=== PATIENT | male | born 1985 | race Caucasian/White ===

== ENCOUNTER 2016-11-10 19:58 | Emergency (ER) | payer MEDICAID ==
--- NOTE | 2016-11-10 20:14 | UCPHY ---
H & P Patient Type: New Chief Complaint Nursing Narrative: injured r forearm playing football wednesday HPI/ROS: HPI CHIEF COMPLAINT: Right elbow pain, right forearm pain HISTORY OF PRESENT ILLNESS: This patient very pleasant 31-year-old male, significant past medical history for hypertension, presents to the urgent care with right forearm pain and right elbow pain status post injury while playing full tackle football on Wednesday. Patient states he remembers initial injury was strike to the medial aspect of his forearm over his radius, since then he has had some mild pain however today while using heavy machinery with his arm he develops severe pain medial aspect of his radius radiating down into his right thumb sometimes sharp stabbing pains goes the tip of his right thumb and other times he is tingling. He has no radiopharmacist weakness. He does have severe pain mid forearm radial side.. Past Medical History:Hypertension Past Surgical History: Nasal surgery, tonsillectomy Social History: Denies daily use of drugs alcohol tobacco products Family History: Noncontributory ROS REVIEW OF SYSTEMS: A comprehensive 10 point review of systems is otherwise negative aside from elements mentioned in the history of present illness. Exam Constitutional triage nursing summary reviewed, vital signs reviewed, awake/ alert. Eyes normal conjunctivae and sclera, EOMI, PERRLA. HENT normal inspection, atraumatic, moist mucus membranes, no epistaxis, neck supple/ no meningismus, no raccoon eyes. Respiratory clear to auscultation bilaterally, normal breath sounds, no respiratory distress, no wheezing. Cardiovascular rate normal, regular rhythm, no murmur, no edema, distal pulses normal. Gastrointestinal soft, non-tender, no rebound, no guarding, normal bowel sounds, no distension, no pulsatile mass. Genitourinary no CVA tenderness. Musculoskeletal right forarm: Soft compartments, Neurovascularly intact distally good cap refill, good sensation, good radiopharmacist strength, good pulse, tender palpation over the medial aspect of the form specifically radial side tender palpation over the posterior elbow, full range of motion, however has exquisite pain with supination pronation of the wrist. no midline vertebral tenderness, full range of motion, no calf swelling, no tenderness of extremities , no meningismus, good pulses, neurovascularly intact. Skin pink, warm, & dry, no rash, skin atraumatic. Neurologic awake, alert and oriented x 3, AAOx3, moves all 4 extremities equally, motor intact, sensory intact, CN II-XII intact, normal cerebellar, normal vision, normal speech. Psychiatric normal mood/affect. Heme/Lymph/Immune no lymphadenopathy. Differential Diagnosis: Includes but is not limited to in a particular order, soft tissue injury, nerve injury, bony abnormality, forearm fracture, compartment syndrome Medical Decision Making: patient declined pain medicine here plan for patient is to have a x-ray of the forearm and elbow to rule out bony abnormality. Most likely patient will need to be placed in a posterior long-arm splint anti- inflammatory pain medicine [place] for severe pain control and orthopedic follow- up. Re-evaluation: ED x-ray right forearm: no evidence of acute fracture. Image interpreted myself. ED x-ray right elbow: No evidence of acute fracture. Image interpreted myself. 2100: this patient be splinted in a posterior long-arm splint and sling for comfort ibuprofen for anti-inflammatory pain control [place] for pain control patient will need to follow up with Orthopedics outpatient for splint takedown in repeat imaging. At this time is neurovascular intact good cap refill, good pulse, compartments are soft. No evidence of compartment syndrome. X-rays reviewed show no acute fracture. It is possibly is bony contusion, soft tissue injury with inflammation causing ongoing forearm pain and nerve radicular pain at times. Understands to ice his arm, stay in his splint and sling for comfort. Follow up with Orthopedics. He understands. 2104: patient is paced in a posterior long-arm splint. Appropriate placement neurovascular intact. Source: Patient - Personal History Current Tetanus/Diphtheria Vaccine: Yes - Medical/Surgical History Hx Asthma: No Hx Chronic Respiratory Disease: No Hx Diabetes: No Hx Cardiac Disease: No Hx Renal Disease: No Hx Cirrhosis: No Hx Alcoholism: No Hx HIV/AIDS: No Hx Splenectomy or Spleen Trauma: No Other PMH: appy/hernia/tonsillectomy/l knee surg/nasal fx - Family History Significant Family History: No pertinent family hx - Social History Smoking Status: Current every day smoker Constitutional: Initial Vital Signs Temperature (C) 36.7 C 11/10/16 20:08 Heart Rate 90 11/10/16 20:08 Respiratory Rate 16 11/10/16 20:08 Blood Pressure 188/103 H 11/10/16 20:08 O2 Sat (%) 97 11/10/16 20:08 O2 Delivery Mode Room Air Allergies/Adverse Reactions: Sulfa (Sulfonamide Antibiotics) Allergy (Verified 11/10/16 20:07) Home Medications: Medication Instructions Recorded Hydrocodone/APAP 5/325 [[place] 1 - 2 tab PO Q4H PRN #20 tab 11/10/16 5/325] Ibuprofen [Motrin (*)] 800 mg PO Q6-8PRN #10 tab 11/10/16 Metoprolol Succinate 11/10/16 Norvasc 11/10/16 Omeprazole 11/10/16 Departure - Departure Disposition: Home, Routine, Self-Care Clinical Impression: Forearm contusion Qualifiers: Encounter type: initial encounter Laterality: right Qualified Code(s): S50.11XA - Contusion of right forearm, initial encounter Condition: Good Instructions: Contusion in Adults (ED), Arm Pain (ED) Additional Instructions: 1. Please follow up with Orthopedics 2. please ice your arm. Please stay in her splint do not get wet. 3. Take ibuprofen for anti-inflammatory pain control [place] for having severe pain. Referrals: NONE *PRIMARY CARE P,. [Primary Care Provider] - As per Instructions Fredy Plasencia MD [Medical Doctor] - As per Instructions Prescriptions: Hydrocodone/APAP 5/325 [[place] 5/325] 1 - 2 tab PO Q4H PRN #20 tab PRN Reason: Pain, Moderate Ibuprofen [Motrin (*)] 800 mg PO Q6-8PRN #10 tab - PQRS PQRS Measurement: n/a
[2016-11-10 20:22] VITALS: BP 188/103; PULSE 90; RESP 16; TEMP 98.1; O2SAT 97
== END 2016-11-10 21:22 | disposition home or self-care (01) ==
LOC: CED 19:58
PROC: 2W3AX1Z Immobilization of Right Upper Arm using Splint (ICD-10-PCS; principal; 2016-11-10)
DX: S50.11XA Contusion of right forearm, initial encounter (principal); Y93.61 Activity, american tackle football; W50.0XXA Accidental hit or strike by another person, initial encounter; Y99.8 Other external cause status; I10 Essential (primary) hypertension; F17.200 Nicotine dependence, unspecified, uncomplicated
CPT/HCPCS: 73080-PO; 73090-PO; 99204-PO; G0463-PO

== ENCOUNTER 2016-12-25 13:31 | Emergency (ER) | payer MEDICAID ==
[2016-12-25 13:40] VITALS: RESP 14; TEMP 98.1; O2SAT 97
[2016-12-25] MEDS ORDERED: NS 1,000 ML IV ONE (13:51)
[2016-12-25] MEDS ORDERED: HYDROmorphONE/DILAUDID 1 MG/ML SYR IVP ONE ×2 (13:51→14:41)
[2016-12-25] MEDS ORDERED: ONDANSETRON 4 MG/2 ML VIAL IVP ONE (13:51)
--- NOTE | 2016-12-25 13:51 | UCPHY ---
H & P Patient Type: Established Chief Complaint Nursing Narrative: right testicular pain and groin pain . Since Wednesday night after foot ball game. today made worse while carrying heavy 200lb object today . No urinary issues. Time Seen by Provider: 12/25/16 13:44 HPI/ROS: CHIEF COMPLAINT: Right testicular pain HISTORY OF PRESENT ILLNESS: Patient is a 31-year-old man who comes to the Urgent Care complaining of right-sided testicular pain. He noticed the pain on Wednesday while playing football. He thought that he strained his groin muscle. It Was slightly painful all week but became significantly more painful about 9: 00 a.m. this morning when he was lifting glass at work. He had significant pain that he felt like he was shocked. he has had an inguinal hernia repair on the right side several years ago. No palpable lumps or masses. He also has had his appendix removed remotely. He has had a poor appetite all week and did vomit on Wednesday. REVIEW OF SYSTEMS: Constitutional: denies: chills, fever, recent illness, recent injury EENTM: denies: blurred vision, double vision, nose congestion Respiratory: denies: cough, shortness of breath Cardiac: denies: chest pain, irregular heart rate, lightheadedness, palpitations Gastrointestinal/Abdominal: denies: abdominal pain, diarrhea, nausea, vomiting, blood streaked stools Genitourinary: denies: dysuria, frequency, hematuria, pain Musculoskeletal: denies: joint pain, muscle pain Skin: denies: lesions, rash, jaundice, bruising Neurological: denies: headache, numbness, paresthesia, tingling, dizziness, weakness Hematologic/Lymphatic: denies: blood clots, easy bleeding, easy bruising Immunologic/allergic: denies: HIV/AIDS, transplant EXAM: GENERAL: Well-appearing, well-nourished and in no acute distress. HEAD: Atraumatic, normocephalic. EYES: Pupils equal round and reactive to light, extraocular movements intact, sclera anicteric, conjunctiva are normal. ENT: TMs normal, nares patent, oropharynx clear without exudates. Moist mucous membranes. NECK: Normal range of motion, supple without lymphadenopathy or JVD. LUNGS: Breath sounds clear to auscultation bilaterally and equal. No wheezes rales or rhonchi. HEART: Regular rate and rhythm without murmurs, rubs or gallops. ABDOMEN: Soft, nontender, normoactive bowel sounds. No guarding, no rebound. No masses appreciated. : Patient has a high-riding right testicle, negative cremasteric reflex, horizontal lie, BACK: No CVA tenderness, no spinal tenderness, step-offs or deformities EXTREMITIES: Normal range of motion, no pitting or edema. No clubbing or cyanosis. NEUROLOGICAL: Cranial nerves II through XII grossly intact. Normal speech, normal gait. 5/5 strength, normal movement in all extremities, normal sensation PSYCH: Normal mood, normal affect. SKIN: Warm, dry, normal turgor, no visible rashes or lesions. Source: Patient Exam Limitations: No limitations - Personal History Current Tetanus Diphtheria and Acellular Pertussis (TDAP): Yes - Medical/Surgical History Hx Asthma: No Hx Chronic Respiratory Disease: No Hx Diabetes: No Hx Cardiac Disease: No Hx Renal Disease: No Hx Cirrhosis: No Hx Alcoholism: No Hx HIV/AIDS: No Hx Splenectomy or Spleen Trauma: No Other PMH: appy/hernia/tonsillectomy/l knee surg/nasal fx - Family History Significant Family History: No pertinent family hx - Social History Smoking Status: Current some day smoker Alcohol Use: Sober Drug Use: None Constitutional: Initial Vital Signs Temperature (C) 36.7 C 12/25/16 13:34 Heart Rate 100 12/25/16 13:34 Respiratory Rate 14 12/25/16 13:34 Blood Pressure 179/118 H 12/25/16 13:34 O2 Sat (%) 97 12/25/16 13:34 O2 Delivery Mode Room Air Allergies/Adverse Reactions: Sulfa (Sulfonamide Antibiotics) Allergy (Verified 12/25/16 13:40) Home Medications: Medication Instructions Recorded Metoprolol Succinate 11/10/16 Norvasc 11/10/16 Omeprazole 11/10/16 Doxycycline Hyclate [Vibramycin] 100 mg PO BID #30 cap 12/25/16 Hydrocodone/APAP 5/325 [[place] 1 - 2 tab PO Q4H PRN #10 tab 12/25/16 5/325 (RX)] Medical Decision Making - Diagnostics Imaging: Images reviewed by me personally ED Course/Re-evaluation: 1:52 p.m. I did attempt to de-torse the right testicle 180 degrees. Ultrasound has been ordered and urology has been paged . 2:50 p.m. I spoke with Dr. Ly at 2:45 p.m. He recommends treating the patient with anti-inflammatories as well as antibiotics. He recommends obtaining a urine for cultures. He also recommends staying off of his feet and scrotal support and they will follow up with him early next week. We discussed this with the patient and he understands and agrees. He is in a monogamous relationship and is confident that this is not represent an STD. We discussed indications for returning. Differential Diagnosis: Partial list of the Differential diagnosis considered include but were not limited to; testicular torsion, varicocele, epididymitis and although unlikely based on the history and physical exam, I also considered trauma, inguinal hernia, appendicitis, kidney stone. I discussed these differential diagnoses and the plan with the patient as well as the usual and expected course. The patient understands that the diagnosis is provisional and that in medicine we are not always correct and that further workup is often warranted. Usual and customary warnings were given. All of the patient's questions were answered. The patient was instructed to return to the emergency department should the symptoms at all worsen or return, otherwise to followup with the physician as we discussed. - Data Points Laboratory Results: Laboratory Results 12/25/16 14:20 12/25/16 14:20 Microbiology Results: MICROBIOLOGY 12/25/16 15:00 Urine,Clean Catch Urine Culture - Preliminary Medications Given: Discontinued Medications Hydrocodone Bitart/Acetaminophen ([place] 5/325mg Prepack#6) 1 btl TAKEHOME EDNOW ONE Stop: 12/25/16 15:39 Last Admin: 12/25/16 15:47 Dose: 1 btl Ceftriaxone Sodium (Rocephin 250mg Vial) 250 mg IM EDNOW ONE PRN Reason: Protocol Stop: 12/25/16 14:46 Last Admin: 12/25/16 15:15 Dose: 250 mg Doxycycline Hyclate (Doxycycline Hyclate) 100 mg PO EDNOW ONE PRN Reason: Protocol Stop: 12/25/16 14:46 Last Admin: 12/25/16 15:21 Dose: 100 mg Hydromorphone HCl (Dilaudid) 1 mg IVP EDNOW ONE Stop: 12/25/16 13:52 Last Admin: 12/25/16 14:20 Dose: 1 mg Hydromorphone HCl (Dilaudid) 1 mg IVP EDNOW ONE Stop: 12/25/16 14:42 Last Admin: 12/25/16 14:50 Dose: 1 mg Sodium Chloride (Ns) 1,000 mls @ 0 mls/hr IV ONCE ONE PRN Reason: Wide Open Stop: 12/25/16 13:52 Last Admin: 12/25/16 14:30 Dose: 1,000 mls Ketorolac Tromethamine (Toradol) 30 mg IVP EDNOW ONE Stop: 12/25/16 14:47 Last Admin: 12/25/16 14:59 Dose: 30 mg Ondansetron HCl (Zofran) 4 mg IVP EDNOW ONE Stop: 12/25/16 13:52 Last Admin: 12/25/16 14:15 Dose: 4 mg Departure - Departure Disposition: Home, Routine, Self-Care Clinical Impression: Right varicocele, Testicle pain Condition: Fair Instructions: Varicocele (ED), Testicle Pain (ED) Additional Instructions: Use scrotal support and anti-inflammatories as discussed. Referrals: Mona Ly MD [Medical Doctor] - 2-3 days without fail Prescriptions: Doxycycline Hyclate [Vibramycin] 100 mg PO BID #30 cap Hydrocodone/APAP 5/325 [[place] 5/325 (RX)] 1 - 2 tab PO Q4H PRN #10 tab PRN Reason: Pain, Moderate - PQRS PQRS Measurement: Not applicable
[2016-12-25 14:31] LABS: % IMMATURE GRANULYOCYTES 0.3 % (0.0-1.1); ABSOLUTE IMMATURE GRANULOCYTES 0.02 10^3/uL (0.00-0.10); ADD DIFF? NO; ADD MORPH? NO; ADD SCAN? NO; ATYPICAL LYMPHOCYTE FLAG 0 (0-99); FRAGMENT RBC FLAG 0 (0-99); HEMATOCRIT 41.9 % (40.0-51.0); HEMOGLOBIN 14.3 g/dL (13.7-17.5); LEFT SHIFT FLG 0 (0-99); LIPEMIA HEMOLYSIS FLAG 90 (0-99); MEAN CELL HEMOGLOBIN 31.2 pg (27.9-34.1); MEAN CELL HEMOGLOBIN CONCENTR. 34.1 g/dL (32.4-36.7); MEAN CELL VOLUME 91.5 fL (81.5-99.8); MEAN PLATELET VOLUME 12.4 fL (8.7-11.7); PLATELET CLUMPS FLAG 0 (0-99); PLATELET COUNT 162 10^3/uL (150-400); RED BLOOD CELL COUNT 4.58 10^6/uL (4.40-6.38); RED CELL DISTRIBUTION WIDTH 12.2 % (11.5-15.2)
[2016-12-25] MEDS ORDERED: DOXYCYCLINE HYCLATE 100 MG CAP/TAB PO ONE (14:45)
[2016-12-25] MEDS ORDERED: KETOROLAC 30 MG/1 ML SDV IVP ONE (14:46)
[2016-12-25] MEDS ORDERED: cefTRIAXone 0.25 GM in NS 100 ML IV ONE (14:46)
[2016-12-25] MEDS: cefTRIAXone 250 MG VIAL IM ONE ×2 (14:46→15:15)
[2016-12-25 14:56] LABS: ANION GAP 14 mEq/L (8-16); CALCIUM 9.1 mg/dL (8.5-10.4); CARBON DIOXIDE 24 mEq/l (22-31); CHLORIDE 101 mEq/L (97-110); CREATININE 0.9 mg/dL (0.7-1.3); GLOMERULAR FILTRATION RATE > 60; GLUCOSE 85 mg/dL (70-100); POTASSIUM 4.5 mEq/L (3.5-5.2); SODIUM 139 mEq/L (134-144)
[2016-12-25 15:09] LABS: COLOR YELLOW; LEUKOCYTE ESTERASE,URINE NEGATIVE (NEGATIVE); NITRITE,URINE NEGATIVE (NEGATIVE); PH,URINE 6.5 (5.0-7.5)
[2016-12-25] MEDS ORDERED: HYDROCOD/APAP 5/325 PREPACK#6 BTL TAKEHOME ONE (15:38)
[2016-12-25 16:28] VITALS: BP 158/96; PULSE 88
[2016-12-28 14:05] LABS: CHLAMYDIA AMPLIFICATION GENPRB NEGATIVE (NEGATIVE)
[2016-12-28] MEDS: cefTRIAXone 250 MG VIAL IM ONE (22:59)
[2016-12-29] MEDS: cefTRIAXone 250 MG VIAL IM ONE (17:12)
== END 2016-12-25 16:01 | disposition home or self-care (01) ==
LOC: CED 13:31
DX: I86.1 Scrotal varices (principal); N50.811 Right testicular pain; F17.200 Nicotine dependence, unspecified, uncomplicated
CPT/HCPCS: 76870-PO; 80048-PO; 81003-PO; 85025-PO; 96361-PO; 96365-PO; 96372-PO; 96375-PO; 96376-PO; G0463-PO; J0696; J1170; J1885; J2405

== ENCOUNTER 2017-04-29 11:56 | Emergency (ER) | payer MEDICAID, OTHER ==
[2017-04-29 12:10] VITALS: RESP 16; TEMP 98.6
--- NOTE | 2017-04-29 12:18 | EDPHY ---
H & P Time Seen by Provider: 04/29/17 12:06 HPI/ROS: Chief complaint. Nausea and vomiting HPI. 32-year-old male presents with 1 day history of nausea and vomiting. He awoke about midnight with nausea which did proceed vomiting. He also noticed right upper quadrant throbbing type pain. No diarrhea. He can't keep fluids down. He is dizzy on standing. 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 No recent travel or bad food or sick contacts. He has noted decreased urination. No chest discomfort or trouble breathing. He has had similar symptoms previously with right upper quadrant discomfort. Apparently a through 4 years ago there was concern for cholecystitis but he never did have an operation and has not had any right upper quadrant symptoms since that time. He has had his appendix taken out. Because of his nausea vomiting today he was unable to take his antihypertensive medication ROS Constitutional. no fever/chills, no weakness Eyes. no problems with vision ENT. no sore throat, no nasal drainage Cardiovascular. no chest pain Respiratory. no shortness of breath, no cough Abdominal. Right upper quadrant abdominal pain with nausea and vomiting . no problems urinating MS. no calf pain/swelling, no neck/back pain, no joint pain Skin. no rash Lymph. no swollen glands Neuro. Dizzy Past Medical/Surgical History: Appendectomy, hypertension, hernia Social History: Single, daily smoker, no alcohol Smoking Status: Current some day smoker Physical Exam: General Appearance: Alert well-developed male mild distress vital signs show heart rate 104 and initial blood pressure 173/113 Eyes: Pupils equal and round no pallor or injection. ENT, mucous membranes are dry Respiratory: There are no retractions, lungs are clear to auscultation. Cardiovascular: Regular rate and rhythm. Gastrointestinal: Abdomen is soft with really more epigastric discomfort to palpation. No masses. Normal bowel sounds Neurological: Awake and alert, sensory and motor exams grossly normal. Skin: Warm and dry, no rashes. Musculoskeletal: Neck is supple nontender. Extremities symmetrical, full range of motion. Psychiatric: Patient is oriented X 3, there is no agitation. Constitutional: Initial Vital Signs Temperature (C) 37.0 C 04/29/17 12:03 Heart Rate 104 H 04/29/17 12:03 Respiratory Rate 16 04/29/17 12:03 Blood Pressure 173/113 H 04/29/17 12:03 O2 Sat (%) 96 04/29/17 12:03 O2 Delivery Mode Room Air Allergies/Adverse Reactions: Sulfa (Sulfonamide Antibiotics) Allergy (Verified 12/25/16 13:40) tramadol Allergy (Verified 04/29/17 12:02) Home Medications: Medication Instructions Recorded Metoprolol Succinate 11/10/16 Norvasc 11/10/16 Omeprazole 11/10/16 Ondansetron Odt [Zofran Odt] 4 mg PO Q4PRN PRN #4 tab 04/29/17 Medical Decision Making - Diagnostics Imaging Results: Imaging Impressions Abdomen Ultrasound 04/29/17 13:00 Impression: Negative sonogram of the right upper quadrant of the abdomen. I telephoned results to Dr. Krishna Lei at 1340 hours. Ultrasound right upper quadrant reviewed by me and discussed with Dr. Burnham shows no evidence of gallstone or cholecystitis Procedures: IV normal saline with initial target of 2 L. Zofran for nausea ED Course/Re-evaluation: Recheck at 12:50 p.m. and patient still is nauseated. He is given Phenergan IV Recheck at 1:10 p.m. and patient continues to complain of right upper quadrant pain. He is given Toradol IV. Ultrasound is ordered Re-evaluation at 2:00 p.m.. Patient is stable. He is finishing his 1st L of saline. No urination yet. He is taking oral ice chips Re-evaluation 2:35 p.m.. Patient tolerating ice chips and fluids without nausea or vomiting. He feels well to go home . Patient and I discussed imaging and lab results. We discussed treatment plan including criteria for return importance of follow-up and further evaluation. He expresses understanding and agreement Differential Diagnosis: Likely this is dehydration secondary to vomiting. I considered gallbladder disease as well as pancreatitis but these appear to be normal by lab and imaging studies. I considered electrolyte abnormalities as well - Data Points Laboratory Results: Laboratory Results 04/29/17 12:16 04/29/17 12:16 04/29/17 04/29/17 12:16 12:16 WBC 8.11 10^3/uL 10^3/uL (3.80-9.50) RBC 4.60 10^6/uL 10^6/uL (4.40-6.38) Hgb 14.4 g/dL g/dL (13.7-17.5) Hct 41.1 % % (40.0-51.0) MCV 89.3 fL fL (81.5-99.8) MCH 31.3 pg pg (27.9-34.1) MCHC 35.0 g/dL g/dL (32.4-36.7) RDW 12.2 % % (11.5-15.2) Plt Count 227 10^3/uL 10^3/uL (150-400) MPV 11.7 fL fL (8.7-11.7) Neut % (Auto) 58.0 % % (39.3-74.2) Lymph % (Auto) 32.7 % % (15.0-45.0) [place] % (Auto) 6.4 % % (4.5-13.0) Eos % (Auto) 1.8 % % (0.6-7.6) Baso % (Auto) 0.6 % % (0.3-1.7) Nucleat RBC Rel Count 0.0 % % (0.0-0.2) Absolute Neuts (auto) 4.70 10^3/uL 10^3/uL (1.70-6.50) Absolute Lymphs (auto) 2.65 10^3/uL 10^3/uL (1.00-3.00) Absolute Monos (auto) 0.52 10^3/uL 10^3/uL (0.30-0.80) Absolute Eos (auto) 0.15 10^3/uL 10^3/uL (0.03-0.40) Absolute Basos (auto) 0.05 10^3/uL 10^3/uL (0.02-0.10) Absolute Nucleated RBC 0.00 10^3/uL 10^3/uL (0-0.01) Immature Gran % 0.5 % % (0.0-1.1) Immature Gran # 0.04 10^3/uL 10^3/uL (0.00-0.10) Sodium 140 mEq/L mEq/L (134-144) Potassium 4.4 mEq/L mEq/L (3.5-5.2) Chloride 106 mEq/L mEq/L (97-110) Carbon Dioxide 21 mEq/l L mEq/l (22-31) Anion Gap 13 mEq/L mEq/L (8-16) BUN 17 mg/dL mg/dL (7-23) Creatinine 1.0 mg/dL mg/dL (0.7-1.3) Estimated GFR > 60 Glucose 88 mg/dL mg/dL (70-100) Calcium 9.6 mg/dL mg/dL (8.5-10.4) Total Bilirubin 0.9 mg/dL mg/dL (0.1-1.4) Conjugated Bilirubin 0.4 mg/dL mg/dL (0.0-0.5) Unconjugated Bilirubin 0.5 mg/dL mg/dL (0.0-1.1) AST 27 IU/L IU/L (17-59) ALT 51 IU/L IU/L (21-72) Alkaline Phosphatase 112 IU/L IU/L (38-126) Total Protein 7.5 g/dL g/dL (6.3-8.2) Albumin 4.6 g/dL g/dL (3.5-5.0) Lipase 73 IU/L IU/L (23-300) Medications Given: Discontinued Medications Sodium Chloride (Ns) 1,000 mls @ 0 mls/hr IV ONCE ONE PRN Reason: Wide Open Stop: 04/29/17 12:22 Last Admin: 04/29/17 12:22 Dose: 1,000 mls Ketorolac Tromethamine (Toradol) 30 mg IVP EDNOW ONE Stop: 04/29/17 13:08 Last Admin: 04/29/17 13:12 Dose: 30 mg Ondansetron HCl (Zofran) 4 mg IVP EDNOW ONE Stop: 04/29/17 12:22 Last Admin: 04/29/17 12:30 Dose: 4 mg Promethazine HCl (Phenergan) 12.5 mg IVP EDNOW ONE Stop: 04/29/17 12:48 Last Admin: 04/29/17 12:51 Dose: 12.5 mg Departure - Departure Disposition: Home, Routine, Self-Care Clinical Impression: Dehydration Vomiting Qualifiers: Vomiting type: unspecified Vomiting Intractability: non-intractable Nausea presence: with nausea Qualified Code(s): R11.2 - Nausea with vomiting, unspecified Condition: Good Instructions: Acute Nausea and Vomiting (ED) Additional Instructions: Frequent, small sips fluids while nauseated. Gradual diet advancement. Zofran if needed for nausea and vomiting. Return for worsening symptoms. Recheck in 1 day if not improved Referrals: Unknown,Unknown [Primary Care Provider] - As per Instructions Stand Alone Forms: Work Excuse Prescriptions: Ondansetron Odt [Zofran Odt] 4 mg PO Q4PRN PRN #4 tab PRN Reason: Nausea/Vomiting, Use 1st
[2017-04-29] MEDS ORDERED: NS 1,000 ML IV ONE ×2 (12:21→12:38)
[2017-04-29] MEDS ORDERED: ONDANSETRON 4 MG/2 ML VIAL IVP ONE (12:21)
[2017-04-29 12:44] LABS: % IMMATURE GRANULYOCYTES 0.5 % (0.0-1.1); ABSOLUTE IMMATURE GRANULOCYTES 0.04 10^3/uL (0.00-0.10); ADD DIFF? NO; ADD MORPH? NO; ADD SCAN? NO; ATYPICAL LYMPHOCYTE FLAG 0 (0-99); FRAGMENT RBC FLAG 0 (0-99); HEMATOCRIT 41.1 % (40.0-51.0); HEMOGLOBIN 14.4 g/dL (13.7-17.5); LEFT SHIFT FLG 0 (0-99); LIPEMIA HEMOLYSIS FLAG 90 (0-99); MEAN CELL HEMOGLOBIN 31.3 pg (27.9-34.1); MEAN CELL VOLUME 89.3 fL (81.5-99.8); MEAN PLATELET VOLUME 11.7 fL (8.7-11.7); PLATELET CLUMPS FLAG 0 (0-99); PLATELET COUNT 227 10^3/uL (150-400); RED CELL DISTRIBUTION WIDTH 12.2 % (11.5-15.2)
[2017-04-29] MEDS ORDERED: PROMETHAZINE HCL 25 MG/ML INJ IVP ONE (12:47)
[2017-04-29 13:00] LABS: ALANINE AMINOTRANSFERASE 51 IU/L (21-72); ALBUMIN 4.6 g/dL (3.5-5.0); ALKALINE PHOSPHATASE 112 IU/L (38-126); ANION GAP 13 mEq/L (8-16); ASPARTATE AMINOTRANSFERASE 27 IU/L (17-59); BILIRUBIN,TOTAL 0.9 mg/dL (0.1-1.4); BILIRUBIN-CONJUGATED 0.4 mg/dL (0.0-0.5); BILIRUBIN-UNCONJUGATED 0.5 mg/dL (0.0-1.1); CALCIUM 9.6 mg/dL (8.5-10.4); CARBON DIOXIDE 21 mEq/l (22-31); CHLORIDE 106 mEq/L (97-110); GLOMERULAR FILTRATION RATE > 60; GLUCOSE 88 mg/dL (70-100); POTASSIUM 4.4 mEq/L (3.5-5.2); SODIUM 140 mEq/L (134-144); TOTAL PROTEIN 7.5 g/dL (6.3-8.2)
[2017-04-29] MEDS ORDERED: KETOROLAC 30 MG/1 ML SDV IVP ONE (13:07)
[2017-04-29 14:59] VITALS: BP 155/95; PULSE 82; O2SAT 96
== END 2017-04-29 14:45 | disposition home or self-care (01) ==
LOC: CED 11:56
DX: E86.0 Dehydration (principal); I10 Essential (primary) hypertension; F17.200 Nicotine dependence, unspecified, uncomplicated
CPT/HCPCS: 76705-PO; 80048-PO; 80076-PO; 83690-PO; 85025-PO; 96374; J1885; J2405; J2550

== ENCOUNTER 2017-11-08 10:32 | Emergency (ER) | payer OTHER ==
[2017-11-08] MEDS ORDERED: NS 1,000 ML IV ONE (11:06)
[2017-11-08] MEDS: KETOROLAC 30 MG/1 ML SDV IVP ONE ×2 (11:15→13:29)
--- NOTE | 2017-11-08 11:15 | EDPHY ---
H & P Time Seen by Provider: 11/08/17 11:01 HPI/ROS: HPI Fall, left upper abdominal pain. 32-year-old male by private vehicle. This patient reports that he had an abdominal wall, left upper quadrant hernia repair performed on September 29 of this year. He reports that he has been off his pain medications. He reports that he was out to dinner last night. He was escorting his [id number]. She slipped and fell, he then slipped and fell landing on his left side and his [id number] rate landing on top of him. Since this time he has had worsening left-sided upper abdominal pain starting in the area of his surgical incision and radiating around to his left lateral lower ribs and left flank area. He describes the pain as sharp and worse with movement and deep breathing. He did not hit his head. There was no loss of consciousness. No neck pain or other complaints. ROS: Constitutional: No fever, no chills. No weakness. Eyes: No discharge. No changes in vision. ENT: No sore throat. No nasal congestion or rhinorrhea. Respiratory: No cough. No shortness of breath. As above. Cardiac: No chest pain, no palpitations. Gastrointestinal: As above, no vomiting, no diarrhea. Genitourinary: No hematuria. No dysuria or increased frequency with urination. Musculoskeletal: As above.. No neck pain. No myalgias or arthralgias. Skin: No rashes. Neurological: No headache. No focal weakness or altered sensation. Past medical history: As above. Social history: Here by himself. Drinks alcohol socially. Nonsmoker. Physical Exam: General Appearance: Alert, pleasant demeanor, he appears uncomfortable. This patient is responding to questions appropriately and in full sentences. This patient appears well-hydrated and well-nourished. Head: Normocephalic atraumatic. Face: Facial bones are stable on palpation. Eyes: Pupils equal and round and reactive to light, no pallor or injection. No lid erythema or edema. ENT, Mouth: Mucous membranes moist. Dentition is intact. No malocclusion of the jaw. No tongue lacerations or abrasions. Pharynx is clear. The bilateral nasal canals are clear. No septal hematoma. Respiratory: There are no retractions, lungs are clear to auscultation with good air movement bilaterally. Chest wall is stable to AP and lateral palpation. He has tenderness on palpation of the left anterior lower, lateral and posterior rib areas with tenderness on palpation of the left CVA. Cardiovascular: Regular rate and rhythm. No murmur. Gastrointestinal: Abdomen is soft 7 cm left upper quadrant well-healed abdominal surgical incision scar. No associated ecchymosis, edema, erythema or warmth, he is tender on palpation directly over this area, no masses, bowel sounds normal. Neurological: Motor sensory function is intact. Cranial nerves are normal. Cerebellar function intact. Skin: Warm and dry, no rashes. No lacerations, abrasions or contusions. Musculoskeletal: Neck is supple and nontender. The trachea is midline. No midline cervical, thoracic, lumbar or sacral tenderness on palpation. As above. Extremities are symmetrical, full range of motion. All joints in the bilateral upper and bilateral lower extremities range without pain or impingement. No tenderness on palpation of the long bones in the bilateral upper and bilateral lower extremities. Psychiatric: No agitation. No depression. Database: EKG: Imaging: CT scan of abdomen and pelvis with IV contrast: Probable subcutaneous contusion left upper quadrant anterior axillary line just below the costal margin. Otherwise negative study. Results were discussed with staff radiologist Dr. Navid Boyce. Procedures: Emergency department course: IV placed. Vital signs reviewed. He was started on IV normal saline with 500 cc to 1 L to be given over the next hour. He has no contraindications to NSAIDs. I will hold Toradol until after evaluation of his CT scan and creatinine. He will initially be given IV hydromorphone. 1:15 p.m., patient re-evaluated. Resting comfortably at this time. Results of his blood work, urinalysis and CT scan discussed with him. His pain is currently well controlled. He will be given a 1 time dose of Toradol IV for further analgesia and longer lasting pain relief. He does feel comfortable going home. Follow-up and return to emergency department precautions were reviewed with him. He was discharged in good condition. His family member is driving him secondary to narcotics given in the emergency department. Differential Diagnosis: The differential diagnosis on this patient includes but is not limited to abdominal wall contusion, rib fractures, postsurgical traumatic injury, splenic injury, renal injury. This represents a partial list of diagnoses considered. These considerations are based on history, physical exam, past history, reassessment and diagnostic testing. Smoking Status: Current some day smoker Constitutional: Initial Vital Signs Temperature (C) 36.5 C 11/08/17 10:46 Heart Rate 91 11/08/17 10:46 Respiratory Rate 16 11/08/17 10:46 Blood Pressure 161/136 H 11/08/17 10:46 O2 Sat (%) 96 11/08/17 10:46 O2 Delivery Mode Room Air O2 (L/minute) 96 Allergies/Adverse Reactions: Sulfa (Sulfonamide Antibiotics) Allergy (Verified 12/25/16 13:40) tramadol Allergy (Verified 04/29/17 12:02) Home Medications: Medication Instructions Recorded Metoprolol Succinate 11/10/16 Norvasc 11/10/16 Omeprazole 11/10/16 Ondansetron Odt [Zofran Odt] 4 mg PO Q4PRN PRN #4 tab 04/29/17 Medical Decision Making - Data Points Laboratory Results: Laboratory Results 11/08/17 11:13 11/08/17 11:13 11/08/17 11/08/17 11/08/17 11:36 11:13 11:13 WBC 5.84 10^3/uL 10^3/uL (3.80-9.50) RBC 4.59 10^6/uL 10^6/uL (4.40-6.38) Hgb 14.5 g/dL g/dL (13.7-17.5) Hct 41.8 % % (40.0-51.0) MCV 91.1 fL fL (81.5-99.8) MCH 31.6 pg pg (27.9-34.1) MCHC 34.7 g/dL g/dL (32.4-36.7) RDW 11.9 % % (11.5-15.2) Plt Count 160 10^3/uL 10^3/uL (150-400) MPV 11.0 fL fL (8.7-11.7) Neut % (Auto) 64.0 % % (39.3-74.2) Lymph % (Auto) 23.8 % % (15.0-45.0) Dubois % (Auto) 8.6 % % (4.5-13.0) Eos % (Auto) 2.4 % % (0.6-7.6) Baso % (Auto) 0.7 % % (0.3-1.7) Nucleat RBC Rel Count 0.0 % % (0.0-0.2) Absolute Neuts (auto) 3.74 10^3/uL 10^3/uL (1.70-6.50) Absolute Lymphs (auto) 1.39 10^3/uL 10^3/uL (1.00-3.00) Absolute Monos (auto) 0.50 10^3/uL 10^3/uL (0.30-0.80) Absolute Eos (auto) 0.14 10^3/uL 10^3/uL (0.03-0.40) Absolute Basos (auto) 0.04 10^3/uL 10^3/uL (0.02-0.10) Absolute Nucleated RBC 0.00 10^3/uL 10^3/uL (0-0.01) Immature Gran % 0.5 % % (0.0-1.1) Immature Gran # 0.03 10^3/uL 10^3/uL (0.00-0.10) Sodium 139 mEq/L mEq/L (135-145) Potassium 4.2 mEq/L mEq/L (3.5-5.2) Chloride 99 mEq/L mEq/L (97-110) Carbon Dioxide 25 mEq/l mEq/l (22-31) Anion Gap 15 mEq/L mEq/L (8-16) BUN 16 mg/dL mg/dL (7-23) Creatinine 0.8 mg/dL mg/dL (0.7-1.3) Estimated GFR > 60 Glucose 128 mg/dL H mg/dL (70-100) Calcium 9.1 mg/dL mg/dL (8.5-10.4) Urine Color YELLOW Urine Appearance CLEAR Urine pH 6.5 (5.0-7.5) Ur Specific [place] 1.025 (1.002-1.030) Urine Protein NEGATIVE (NEGATIVE) Urine Ketones NEGATIVE (NEGATIVE) Urine Blood NEGATIVE (NEGATIVE) Urine Nitrate NEGATIVE (NEGATIVE) Urine Bilirubin NEGATIVE (NEGATIVE) Urine Urobilinogen 0.2 EU EU (0.2-1.0) Ur Leukocyte Esterase NEGATIVE (NEGATIVE) Urine Glucose NEGATIVE (NEGATIVE) Medications Given: Discontinued Medications Hydromorphone HCl (Dilaudid) 1 mg IVP EDNOW ONE Stop: 11/08/17 11:16 Last Admin: 11/08/17 11:47 Dose: 1 mg Sodium Chloride (Ns) 1,000 mls @ 0 mls/hr IV ONCE ONE; Wide Open PRN Reason: Protocol Stop: 11/08/17 11:07 Last Admin: 11/08/17 11:46 Dose: 1,000 mls Ketorolac Tromethamine (Toradol) 30 mg IVP EDNOW ONE Stop: 11/08/17 11:08 Last Admin: 11/08/17 11:15 Dose: Not Given Departure - Departure Disposition: Home, Routine, Self-Care Clinical Impression: Left flank pain, Upper abdominal pain, Fall from slip, trip, or stumble, Abdominal wall contusion Condition: Good Instructions: Abdominal Pain (ED) Additional Instructions: Read and follow provided instructions. Follow-up with your primary care physician or general surgeon within 1-2 days for re-evaluation. You can start taking ibuprofen tomorrow morning. Ibuprofen dosin mg every 6 hours with meals for the next 3 days only. Take only as needed for pain. Return to the emergency department for worsening pain, fever, vomiting, difficulty breathing or other serious concerns. Referrals: Unknown,Unknown [Primary Care Provider] - As per Instructions
[2017-11-08 11:19] LABS: PLATELET COUNT 160 10^3/uL (150-400)
[2017-11-08] MEDS ORDERED: IOPAMIDOL (ISOVUE-300) 100 ML BTL ONE ×2 (11:20→11:58)
[2017-11-08] MEDS: HYDROmorphONE/DILAUDID 1 MG/ML INJ IVP ONE ×2 (11:47→13:13)
[2017-11-08] MEDS ORDERED: HYDROmorphONE/DILAUDID 1 MG/ML INJ IVP ONE (13:06)
[2017-11-08] MEDS ORDERED: KETOROLAC 30 MG/1 ML SDV IVP ONE (13:19)
[2017-11-08 13:42] VITALS: BP 126/114; PULSE 18; RESP 20; TEMP 99; O2SAT 96
== END 2017-11-08 13:36 | disposition home or self-care (01) ==
LOC: CED 10:32
DX: S30.1XXA Contusion of abdominal wall, initial encounter (principal); E86.9 Volume depletion, unspecified; W01.0XXA Fall on same level from slipping, tripping and stumbling without subsequent striking against object, initial encounter
CPT/HCPCS: 74177-PO; 80048-PO; 81003-PO; 85025-PO; 96374; J1170; J1885; Q9967

== ENCOUNTER 2017-12-27 11:18 | Emergency (ER) | payer OTHER ==
[2017-12-27] MEDS ORDERED: KETOROLAC 30 MG/1 ML SDV IVP ONE (12:00)
--- NOTE | 2017-12-27 12:15 | EDPHY ---
H & P Time Seen by Provider: 12/27/17 11:30 HPI/ROS: This patient reports ankle pain and right testicular pain. He explains that starting 3 days prior to this visit he developed anal pain that has been steadily increasing is now prevented sleep at night due to the severity. He reports that it was 7/10 or so prior to taking 1200 mg of ibuprofen this morning at 7:00 a.m.. Is currently 5/10. Reports increased pain with bowel movements. Reports the pain is similar to hemorrhoids he had the past but more severe and feels deeper in the anal canal than previous episodes. He also reports similar duration of pain in the right testicle with what feels like a lump in the epididymal region. He states the testicular pain is intermittent but moderate to severe when it occurs in feels like"being kicked in the nuts". He reports associated lower belly cramping discomfort in the right lower belly and right inguinal region pain. He has not noticed any bulge to the inguinal area. The inguinal pain is moderate intensity. ROS: No fevers chills or other constitutional symptoms HEENT: No complaints except periorbital contusion from playing flag football last week. Reports line mild localized pain at the area with no ocular symptoms. pulmonary: No cough shortness of breath Cardiovascular: No lightheadedness. No chest pain. GI: No abdominal distension. He maintains good appetite. No nausea or vomiting. Reports normal bowel movements. : No dysuria. No urethral discharge. No frequency urgency. No flank pain. No hematuria. Integumentary: No skin rash Neuro: No complaints 10 point ROS is otherwise negative Past Medical/Surgical History: Appendicitis with appendectomy 2005 Right inguinal hernia repair 9 months ago and [facility] by Dr. Clements Social History: Occasional alcohol. Occasional marijuana. No other drug use. 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 Smoking Status: Current some day smoker Physical Exam: Vital signs notable for hypertension. Otherwise normal vitals. General Appearance: Is a large male -6 ft 6 Alert, no distress. Eyes: Pupils equal and round no pallor or injection. ENT, Mouth: Mucous membranes moist. Respiratory: There are no retractions, lungs are clear to auscultation. Cardiovascular: Regular rate and rhythm. No murmur gallop rub. Gastrointestinal: Normoactive, soft, mild right lower quadrant tenderness with no guarding or rebound. He has mild tenderness to the right inguinal canal with Valsalva maneuver anteriorly. I do not appreciate evidence of an indirect hernia no significant bulging anteriorly but he is tender in that area. : Circumcised penis with no lesions or discharge. He has mild swelling to the right epididymis with slight tenderness. No testicular tenderness. Cremasteric reflexes intact. Rectal exam: Patient has evidence of a thrombosed hemorrhoid at 9 o'clock in lithotomy position 3 cm x 2 cm in size with associated tenderness. The location is external but approaches the anal verge. There is no swelling appreciated in the anal canal. Neurological: GCS 15 Skin: Warm and dry, no rashes. Psychiatric: Patient is mildly anxious about his hemorrhoid. Mood and affect are otherwise normal. DIFFERENTIAL DIAGNOSIS: After history and physical exam differential diagnosis was considered for recurrence of right inguinal hernia, UTI, STD, epididymitis, testicular mass, thrombosed hemorrhoid, perianal abscess Constitutional: Initial Vital Signs Temperature (C) 36.6 C 12/27/17 11:25 Heart Rate 109 H 12/27/17 11:25 Respiratory Rate 16 12/27/17 11:25 Blood Pressure 161/133 H 12/27/17 11:25 O2 Sat (%) 98 12/27/17 11:25 O2 Delivery Mode Room Air Allergies/Adverse Reactions: Sulfa (Sulfonamide Antibiotics) Allergy (Verified 12/27/17 11:32) tramadol Allergy (Verified 12/27/17 11:32) Home Medications: Medication Instructions Recorded Metoprolol Succinate 11/10/16 Norvasc 11/10/16 Omeprazole 11/10/16 Docusate Sodium [Colace 100 MG (*)] 100 mg PO BID PRN #30 cap 12/27/17 Doxycycline Hyclate [Vibramycin 100 mg PO BID #14 cap 12/27/17 100 MG (*)] Penicillin VK 12/27/17 oxyCODONE/APAP 5/325 [Percocet 1 - 2 tab PO Q4-6PRN PRN #15 tab 12/27/17 5/325 (*)] MDM/Departure - MDM Imaging Results: Imaging Impressions Testicular Ultrasound 12/27/17 12:01 Impression: Negative scrotal sonography for acute pathology. Imaging: Discussed imaging studies w/ juvenile court liaison Radiologist Procedures: Hemorrhoidectomy Indication: Thrombosed hemorrhoid After verbal consent patient was treated with fentanyl IV analgesia 100 mcg and remained stable on O2 sat monitor without hypoxia. He is placed in the prone position and with our nurse Tom retracting buttocks I cleaned the affected area with chlorhexidine. I then used a 50 50 mix of 0.5% Marcaine and 1% plain lidocaine, 27 gauge needle, injecting 3.5 mL with good effect. I then used a 11. Scalpel blade to make an elliptical shaped incision approximately 2 cm long. I then removed areas of thrombosed and clotted blood using pickups and a Sofie clamp. Patient tolerated this well. Await the area with gauze there is minimal bleeding Complications: None Patient is then treated with a dressing. I counseled patient regarding treatment plan of doxycycline antibiotics, Sitz baths after bowel movements, ibuprofen and Tylenol or Percocet for pain control and Colace stool softener to prevent constipation. He will follow up with primary care physician for any ongoing symptoms or return for any worsening despite treatment plan. Medications Given: Discontinued Medications Fentanyl (Sublimaze) 100 mcg IVP EDNOW ONE Stop: 12/27/17 12:43 Last Admin: 12/27/17 12:48 Dose: 100 mcg Ketorolac Tromethamine (Toradol) 30 mg IVP EDNOW ONE Stop: 12/27/17 12:01 Last Admin: 12/27/17 12:15 Dose: Not Given Morphine Sulfate (Morphine) 5 mg IVP EDNOW ONE Stop: 12/27/17 12:01 Last Admin: 12/27/17 12:13 Dose: 5 mg ED Course/Re-evaluation: Studies: CBC is normal, basic metabolic panel normal, urinalysis is normal. Discussion: Patient with thrombosed hemorrhoid treated with hemorrhoidectomy without complications. While he has an unchanged epididymal cyst, do not think he has acute epididymitis or other UTI. He has pain and tenderness in the right inguinal canal set of prior surgery without obvious evidence of recurs with may have early inguinal recurrence without evidence of incarcerated hernia or other complications. While he has mild right lower quadrant tenderness appendicitis is not a consideration given prior appendectomy. - Depart Disposition: Home, Routine, Self-Care Clinical Impression: Hemorrhoids, external, thrombosed, Calculus of right kidney, Epididymal cyst Condition: Good Instructions: Thrombosed Hemorrhoid (ED) Additional Instructions: Diagnosis: Thrombosed hemorrhoid-excised 2. Epididymal cyst Plan: Continue ibuprofen for discomfort Tylenol or Percocet in addition if needed. No driving, alcohol or come Percocet Colace stool softeners. Doxycycline antibiotic for the next week. Sitz bath as after bowel movements to clean you're anal area. Use a feminine pad or gauze for any bleeding over the next several hours from the excised hemorrhoid. Return for any significant worsening despite the treatment plan Follow up with Dr. Marr for any ongoing symptoms despite the plan If he have ongoing inguinal pain after this ailment heels, follow up with your general surgeon for recheck of you're inguinal region. Prescriptions: Docusate Sodium [Colace 100 MG (*)] 100 mg PO BID PRN #30 cap PRN Reason: Constipation Doxycycline Hyclate [Vibramycin 100 MG (*)] 100 mg PO BID #14 cap oxyCODONE/APAP 5/325 [Percocet 5/325 (*)] 1 - 2 tab PO Q4-6PRN PRN #15 tab PRN Reason: Pain Referrals: NONE *PRIMARY CARE P,. [Primary Care Provider] - As per Instructions Arlene Marr MD [Medical Doctor] - As per Instructions
[2017-12-27 12:21] LABS: PLATELET COUNT 182 10^3/uL (150-400)
[2017-12-27] MEDS ORDERED: fentaNYL 100 MCG/2 ML INJ IVP ONE (12:42)
[2017-12-27] MEDS ORDERED: fentaNYL 100 MCG/2 ML INJ ONE (12:53)
[2017-12-27 14:07] VITALS: BP 147/85
[2017-12-28 12:51] LABS: GC AMPLIFICATION GENPROBE NEGATIVE (NEGATIVE)
== END 2017-12-27 14:05 | disposition home or self-care (01) ==
LOC: CED 11:18
PROC: 069Y0ZZ Drainage of Lower Vein, Open Approach (ICD-10-PCS; principal; 2017-12-27)
DX: K64.4 Residual hemorrhoidal skin tags (principal); N50.3 Cyst of epididymis; N20.0 Calculus of kidney; F17.200 Nicotine dependence, unspecified, uncomplicated; Z90.49 Acquired absence of other specified parts of digestive tract
CPT/HCPCS: 76870-PO; 80048-PO; 81003-PO; 85025-PO; 96374; J1885; J2270; J3010

== ENCOUNTER 2018-03-08 07:49 | Emergency (ER) | payer OTHER ==
--- NOTE | 2018-03-08 08:07 | EDPHY ---
H & P Time Seen by Provider: 03/08/18 08:06 HPI/ROS: CHIEF COMPLAINT: Right flank pain HISTORY OF PRESENT ILLNESS: Patient started having symptoms around 1:00 p.m. Yesterday. He has significant family history of kidney stones. He had some loose stool yesterday, occasionally radiates around to his right anterior abdominal wall. He had some urinary hesitation but no dysuria or hematuria associated with this. Today the pain spikes at work and he vomited once. Does not appear to be related to movement or position particularly. Symptoms were moderate to severe but now are mild after taking Tylenol. REVIEW OF SYSTEMS: Eye: no change in vision ENT: no sore throat Cardiac: no chest pain or syncope Pulmonary: no cough or SOB Abdomen: HPI, no testicular symptoms Musculoskeletal: HPI Skin: no rash Neuro: No weakness or numbness in legs Constitutional: no fever : HPI A comprehensive 10 point review of systems is otherwise negative aside from elements mentioned in the history of present illness. PAST MEDICAL HISTORY: Seen in the ED on 12/27/2017 for abdominal wall contusion. Appendectomy, left abdominal wall hernia. Social history: Tobacco smoker, occasional alcohol none recently General Appearance: Alert and conversant, cooperative. Eyes: No scleral icterus. ENT, Mouth: Normal mucous membranes. Respiratory: Normal respiratory effort, breath sounds equal, lungs are clear to auscultation. Cardiovascular: Regular rate and rhythm. Gastrointestinal: Abdomen is soft and non tender. Specifically negative Bowman sign and no right upper quadrant abdominal tenderness. Neurological: Alert, face symmetric, normal motor and sensory in extremities. Ambulatory. Skin: Warm and dry, no rashes. Musculoskeletal: No midline spinal or paraspinal or lumbar tenderness. Psychiatric: Not agitated. Emergency Department course/MDM: Plan for urinalysis and CT abdomen pelvis without IV contrast discussed and consented. Patient says many first-degree relatives have renal colic. I think it is unlikely he has gallbladder disease without any right upper quadrant tenderness, and no change with eating or drinking. Sonogram on 2016 was normal, no gallstones. Only drinks occasional alcohol. 910: Results discussed, stable for discharge, but declines pain medication. Smoking Status: Current some day smoker Constitutional: Initial Vital Signs Temperature (C) 36.7 C 03/08/18 07:52 Heart Rate 89 03/08/18 07:52 Respiratory Rate 18 03/08/18 07:52 Blood Pressure 190/135 H 03/08/18 07:52 O2 Sat (%) 97 03/08/18 07:52 O2 Delivery Mode Room Air Allergies/Adverse Reactions: haloperidol [From Haldol] Allergy (Verified 03/08/18 07:56) Sulfa (Sulfonamide Antibiotics) Allergy (Verified 12/27/17 11:32) tramadol Allergy (Verified 12/27/17 11:32) Home Medications: Medication Instructions Recorded Metoprolol Succinate 11/10/16 Norvasc 11/10/16 Omeprazole 11/10/16 Docusate Sodium [Colace 100 MG (*)] 100 mg PO BID PRN #30 cap 12/27/17 Doxycycline Hyclate [Vibramycin 100 mg PO BID #14 cap 12/27/17 100 MG (*)] Penicillin VK 12/27/17 oxyCODONE/APAP 5/325 [Percocet 1 - 2 tab PO Q4-6PRN PRN #15 tab 12/27/17 5/325 (*)] Medical Decision Making - Diagnostics Imaging Results: 910: Negative CT imaging of the abdomen pelvis per Dr. Tracey, no renal colic, appendectomy. Imaging: Discussed imaging studies w/ call taker Radiologist Differential Diagnosis: Differential diagnosis considered for flank pain including but not limited to musculoskeletal causes, kidney stone, pyelonephritis, shingles, and intra- abdominal causes such as diverticulitis and appendicitis. - Data Points Laboratory Results: 03/08/18 08:00 Urine Color YELLOW Urine Appearance CLEAR Urine pH 6.0 (5.0-7.5) Ur Specific [place] 1.024 (1.002-1.030) Urine Protein NEGATIVE (NEGATIVE) Urine Ketones NEGATIVE (NEGATIVE) Urine Blood NEGATIVE (NEGATIVE) Urine Nitrate NEGATIVE (NEGATIVE) Urine Bilirubin NEGATIVE (NEGATIVE) Urine Urobilinogen NEGATIVE EU EU (0.2-1.0) Ur Leukocyte Esterase NEGATIVE (NEGATIVE) Urine Glucose NEGATIVE (NEGATIVE) Departure - Departure Disposition: Home, Routine, Self-Care Clinical Impression: Right flank pain Condition: Good Instructions: Flank Pain (ED) Referrals: Tomas Kim DO [Non Staff Provider (MD)] - As per Instructions
[2018-03-08 09:20] VITALS: BP 130/80
== END 2018-03-08 09:20 | disposition home or self-care (01) ==
DX: R10.9 Unspecified abdominal pain (principal); F17.200 Nicotine dependence, unspecified, uncomplicated; Z90.49 Acquired absence of other specified parts of digestive tract

== ENCOUNTER 2018-03-18 08:40 | Emergency (ER) | payer SELFPAY ==
--- NOTE | 2018-03-18 08:51 | EDPHY ---
H & P Time Seen by Provider: 03/18/18 08:50 HPI/ROS: Chief complaint. Ankle injury HPI. 33-year-old male presents emergency department with left ankle injury. He jumped out of a van this morning and twisted it. Complains of pain with walking to the left ankle. No other injuries. Previous fracture is a child. He is wearing a ankle care home bracelet on the left ankle. No focal weakness or paresthesias. Increased pain with movement. ROS Constitutional. no fever/chills, no weakness Eyes. no problems with vision ENT. no sore throat, no nasal drainage Cardiovascular. no chest pain Respiratory. no shortness of breath, no cough Abdominal. no abdominal pain, no nausea/vomiting, no diarrhea . no problems urinating MS. Left ankle pain Skin. no rash Lymph. no swollen glands Neuro. no headache, no dizziness, no difficulty walking or with speech Past Medical/Surgical History: Appendectomy, hernia, ankle fracture, hypertension, GERD Social History: Single, daily smoker, no alcohol Smoking Status: Current every day smoker Physical Exam: General Appearance: Alert well-developed male mild distress vital signs are stay Eyes: Pupils equal and round no pallor or injection. ENT, Mouth: Mucous membranes are moist. Respiratory: There are no retractions, lungs are clear to auscultation. Cardiovascular: Regular rate and rhythm. Gastrointestinal: Abdomen is soft and nontender, no masses, bowel sounds normal. Neurological: Awake and alert, sensory and motor exams grossly normal. Skin: Warm and dry, no rashes. Musculoskeletal: Neck is supple nontender. Extremities tenderness to the inferior aspect of the lateral malleolus left ankle. No obvious swelling or deformity. Distal motor vascular sensitivity is intact. No real tenderness to the medial aspect of the ankle. Knee and hip were normal Psychiatric: Patient is oriented X 3, there is no agitation. Constitutional: Initial Vital Signs Temperature (C) 37.0 C 03/18/18 08:46 Heart Rate 99 03/18/18 08:46 Respiratory Rate 18 03/18/18 08:46 Blood Pressure 169/125 H 03/18/18 08:46 O2 Sat (%) 98 03/18/18 08:46 O2 Delivery Mode Room Air Allergies/Adverse Reactions: haloperidol [From Haldol] Allergy (Verified 03/18/18 08:45) Sulfa (Sulfonamide Antibiotics) Allergy (Verified 03/18/18 08:45) tramadol Allergy (Verified 03/18/18 08:45) Home Medications: Medication Instructions Recorded Metoprolol Succinate 11/10/16 Norvasc 11/10/16 Medical Decision Making - Diagnostics Imaging Results: Imaging Impressions Ankle X-Ray 03/18/18 08:49 Impression: No acute osseous abnormality. X-ray left ankle interpreted by me as without fracture dislocation Procedures: Velcro stirrup splint is applied. Post splint application reviewed by me shows good anatomic position and distal motor vascular sensitivity to be intact ED Course/Re-evaluation: Re-evaluation 9:19 a.m.. Patient and I discussed imaging study results, treatment plan including criteria for return and importance of follow-up and further evaluation. He expresses understanding and agreement Differential Diagnosis: I considered fracture, dislocation, sprain Departure - Departure Disposition: Home, Routine, Self-Care Clinical Impression: Ankle sprain Qualifiers: Encounter type: initial encounter Involved ligament of ankle: unspecified ligament Laterality: left Qualified Code(s): S93.402A - Sprain of unspecified ligament of left ankle, initial encounter Condition: Good Instructions: Ankle Sprain (ED), Ankle Stirrup Splint (ED) Additional Instructions: Ice and elevation next 24 hr. Splint on for 1 week. Ibuprofen 800 mg every 6 hr for discomfort. Re-evaluation in 1 week for continuing symptoms Referrals: NONE *PRIMARY CARE P,. [Primary Care Provider] - As per Instructions Dora Villatoro MD [Medical Doctor] - 5-7 days, if not improved
[2018-03-18 10:34] VITALS: BP 165/91
== END 2018-03-18 09:38 | disposition home or self-care (01) ==
LOC: CED 08:40
DX: S93.402A Sprain of unspecified ligament of left ankle, initial encounter (principal); I10 Essential (primary) hypertension; F17.200 Nicotine dependence, unspecified, uncomplicated; X58.XXXA Exposure to other specified factors, initial encounter
CPT/HCPCS: 73610-PO; L4350

== ENCOUNTER 2018-05-24 09:27 | Inpatient (IN) | payer SELFPAY ==
[2018-05-24] MEDS ORDERED: NS 1,000 ML IV ONE ×2 (09:30→10:50)
--- NOTE | 2018-05-24 10:18 | EDPHY ---
HPI/HX/ROS/PE/MDM Narrative: CHIEF COMPLAINT: Vomiting, abdominal pain HPI: The patient is a 33-year-old male with a history of alcoholism and pancreatitis approximately 3 months ago. The patient states that he has been sober but approximately 6 days ago suffered a relapse and drink heavily overnight. Since that time he complains of severe epigastric abdominal pain as well as persistent vomiting. He has been trying to take small sips of water but cannot hold anything down. He states this feels exactly similar to prior pancreatitis. He denies any blood in emesis or stool. He denies fever. REVIEW OF SYSTEMS: Aside from elements discussed in the HPI, a comprehensive 10-point review of systems was reviewed and is negative. PMH: Includes alcoholism, alcoholic pancreatitis. Hernia repair. SOCIAL HISTORY: Recovering alcoholic with recent alcohol binge. Denies drug abuse. PHYSICAL EXAM: General:Patient is alert, in no acute distress. ENT:Eyes are normal to inspection. ENT inspection normal. Neck: Normal inspection. Full range of motion. Respiratory:No respiratory distress. Breath sounds normal bilaterally. Cardiovascular: Regular rate and rhythm. Strong peripheral pulses. Normal cap refill. Abdomen: Moderate epigastric tenderness present. No other abdominal tenderness noted. Back: Normal to inspection. No tenderness to palpation. Skin: Normal color. No rash. Warm and dry. Extremities: Normal appearance. Full range of motion. Neuro: Oriented x3. Normal motor function. Normal sensory function. ED Course: Patient received 2 L of IV normal saline as well as multiple doses of IV Zofran and IV Dilaudid. On re-evaluation at 12:00 p.m., he is much more comfortable. Laboratory results reveal an elevated lipase level consistent with acute pancreatitis. The patient is comfortable with the plan to be admitted to [facility]. I spoke to Fany from the hospitalist service and they agree to admit the patient. Dr. Larry will be the accepting physician. The patient has requested to be transported by his [id number] to the hospital. He declines ambulance transport. I think this is reasonable considering his hemodynamic stability. MDM: I see no evidence of abdominal pathology such as bowel obstruction, bowel perforation, appendicitis, diverticulitis or kidney stone. - Data Points Laboratory Results: Laboratory Results 05/24/18 10:16 05/24/18 10:00 05/24/18 05/24/18 05/24/18 10:16 10:00 09:55 WBC 8.95 10^3/uL 10^3/uL (3.80-9.50) RBC 4.83 10^6/uL 10^6/uL (4.40-6.38) Hgb 15.0 g/dL g/dL (13.7-17.5) Hct 43.6 % % (40.0-51.0) MCV 90.3 fL fL (81.5-99.8) MCH 31.1 pg pg (27.9-34.1) MCHC 34.4 g/dL g/dL (32.4-36.7) RDW 12.8 % % (11.5-15.2) Plt Count 161 10^3/uL 10^3/uL (150-400) MPV 12.0 fL H fL (8.7-11.7) Neut % (Auto) 78.1 % H % (39.3-74.2) Lymph % (Auto) 15.0 % % (15.0-45.0) [place] % (Auto) 5.5 % % (4.5-13.0) Eos % (Auto) 0.9 % % (0.6-7.6) Baso % (Auto) 0.2 % L % (0.3-1.7) Nucleat RBC Rel Count 0.0 % % (0.0-0.2) Absolute Neuts (auto) 6.99 10^3/uL H 10^3/uL (1.70-6.50) Absolute Lymphs (auto) 1.34 10^3/uL 10^3/uL (1.00-3.00) Absolute Monos (auto) 0.49 10^3/uL 10^3/uL (0.30-0.80) Absolute Eos (auto) 0.08 10^3/uL 10^3/uL (0.03-0.40) Absolute Basos (auto) 0.02 10^3/uL 10^3/uL (0.02-0.10) Absolute Nucleated RBC 0.00 10^3/uL 10^3/uL (0-0.01) Immature Gran % 0.3 % % (0.0-1.1) Immature Gran # 0.03 10^3/uL 10^3/uL (0.00-0.10) POC Sodium 135 mEq/L mEq/L (135-145) POC Potassium Pending Potassium 3.7 mEq/L mEq/L (3.3-5.0) POC Chloride 100.0 mEq/L mEq/L (97-110) POC Total CO2 16 mEq/L L mEq/L (22-31) POC BUN 12 mg/dL mg/dL (7-23) POC Creatinine 1.0 mg/dL mg/dL (0.7-1.3) POC Glucose 124 mg/dL H mg/dL (70-100) POC Calcium 9.8 mg/dL mg/dL (8.5-10.4) POC Total Bilirubin 0.4 mg/dL mg/dL (0.1-1.4) POC AST 52 IU/L IU/L (17-59) POC ALT 33 IU/L IU/L (21-72) POC Alk Phosphatase 91 IU/L IU/L (38-126) POC Total Protein 8.2 g/dL g/dL (6.3-8.2) POC Albumin 4.7 g/dL g/dL (3.5-5.0) Lipase 1151 IU/L H IU/L (23-300) Medications Given: Discontinued Medications Hydromorphone HCl (Dilaudid) 0.5 mg IVP EDNOW ONE Stop: 05/24/18 10:51 Last Admin: 05/24/18 10:54 Dose: 0.5 mg Hydromorphone HCl (Dilaudid) 0.5 mg IVP EDNOW ONE Stop: 05/24/18 11:38 Last Admin: 05/24/18 11:40 Dose: 0.5 mg Sodium Chloride (Ns) 1,000 mls @ 0 mls/hr IV EDNOW ONE; Wide Open PRN Reason: Protocol Stop: 05/24/18 10:51 Last Admin: 05/24/18 10:54 Dose: 1,000 mls Sodium Chloride (Ns) 1,000 mls @ 0 mls/hr IV ONCE ONE PRN Reason: Wide Open Stop: 05/24/18 09:31 Last Admin: 05/24/18 10:57 Dose: 1,000 mls Ondansetron HCl (Zofran) 4 mg IVP EDNOW ONE Stop: 05/24/18 10:51 Last Admin: 05/24/18 10:54 Dose: 4 mg Ondansetron HCl (Zofran) 4 mg IVP EDNOW ONE Stop: 05/24/18 11:38 Last Admin: 05/24/18 11:41 Dose: 4 mg Point of Care Test Results: Chemistry 05/24/18 09:55 POC Sodium 135 mEq/L mEq/L (135-145) POC Chloride 100.0 mEq/L mEq/L (97-110) POC Total CO2 16 mEq/L L mEq/L (22-31) POC BUN 12 mg/dL mg/dL (7-23) POC Creatinine 1.0 mg/dL mg/dL (0.7-1.3) POC Glucose 124 mg/dL H mg/dL (70-100) POC Calcium 9.8 mg/dL mg/dL (8.5-10.4) POC Total Bilirubin 0.4 mg/dL mg/dL (0.1-1.4) POC AST 52 IU/L IU/L (17-59) POC ALT 33 IU/L IU/L (21-72) POC Alk Phosphatase 91 IU/L IU/L (38-126) POC Total Protein 8.2 g/dL g/dL (6.3-8.2) POC Albumin 4.7 g/dL g/dL (3.5-5.0) General Time Seen by Provider: 05/24/18 09:36 Initial Vital Signs: Initial Vital Signs Heart Rate 105 H 05/24/18 09:40 Respiratory Rate 18 05/24/18 09:40 O2 Sat (%) 96 05/24/18 09:40 O2 Delivery Mode Room Air Allergies/Adverse Reactions: haloperidol [From Haldol] Allergy (Verified 03/18/18 08:45) Sulfa (Sulfonamide Antibiotics) Allergy (Verified 05/24/18 09:39) tramadol Allergy (Verified 05/24/18 09:39) Home Medications: Medication Instructions Recorded Metoprolol Succinate 11/10/16 Omeprazole 05/24/18 amLODIPine BESYLATE [Amlodipine 05/24/18 Besylate] Departure - Departure Disposition: [facility] [place] Inpatient Acute Clinical Impression: Acute alcoholic pancreatitis Condition: Fair Referrals: NONE *PRIMARY CARE P,. [Primary Care Provider] - As per Instructions
[2018-05-24] MEDS ORDERED: HYDROmorphONE/DILAUDID 2 MG/ML INJ IVP ONE ×3 (10:50→12:46)
[2018-05-24] MEDS ORDERED: ONDANSETRON 4 MG/2 ML VIAL IVP ONE ×2 (10:50→11:37)
[2018-05-24 11:41] LABS: PLATELET COUNT 161 10^3/uL (150-400)
[2018-05-24] MEDS ORDERED: HYDROmorphONE/DILAUDID 2 MG/ML INJ IVP PRN (15:11)
[2018-05-24] MEDS ORDERED: FLUMAZENIL 0.5 MG/5 ML MDV IVP PRN (15:11)
--- NOTE | 2018-05-24 16:00 | GHP ---
DATE OF ADMISSION: 05/24/2018 CHIEF COMPLAINT: Nausea, vomiting, abdominal pain. HISTORY OF PRESENT ILLNESS: This is a 33-year-old male with history of alcoholism, and recurrent pancreatitis who presented the emergency room earlier today. He first developed non bloody emesis on Wednesday. Since the onset, he has not been able to eat or drink. On Wednesday, he developed severe abdominal pain that radiates to his back. The pain is described as 7/10, and is constant. The patient has a long history of alcohol abuse, but has been in a program and has been sober for "the past couple months." He began relapsing a few weeks ago , but was drinking intermittently. Prior to developing this pain, it sounds like he had been drinking around a half a pint of hard alcohol. His last hospitalization for pancreatitis was in February 2018. He has been hospitalized 3 times. PAST MEDICAL HISTORY: 1. Alcoholism. 2. Pancreatitis. 3. Hypertension. PAST SURGICAL HISTORY: 1. Hernia repair x3. 2. Left knee surgery. 3. Tonsil and adenoidectomy. 4. Appendectomy. HOME MEDICATIONS: Reviewed. Refer to [employer] for details. ALLERGIES: Haldol, sulfa, and tramadol. SOCIAL HISTORY: The patient lives in [place]. Once again, he has a history of alcohol abuse, refer to HPI. He smokes half a pack of cigarettes per day. He denies any illicit drug use. FAMILY HISTORY: Significant for alcoholism. REVIEW OF SYSTEMS: Comprehensive 10-point review of systems was done and is negative, except for as mentioned in HPI. PHYSICAL EXAM: VITAL SIGNS: Blood pressure 167/117, heart rate 95, respiratory rate 16, O2 saturation 95% on room air, temperature afebrile. GENERAL: No acute distress. HEAD: Normocephalic, atraumatic. EYES: PERRLA. Sclerae anicteric. MOUTH: Moist mucous membranes. NECK: Supple. No lymphadenopathy. CARDIOVASCULAR: S1-S2. No JVD. No lower extremity edema. PULMONARY: Lungs are clear. No wheezes, rales, or rhonchi. Normal respiratory effort. ABDOMEN: Soft, nontender, nondistended. No guarding or rebound tenderness. Negative Bowman sign. EXTREMITIES: No clubbing or cyanosis. NEURO: Cranial nerves 2-12 grossly intact. No focal motor or sensory deficits. No tremor. Patient is interacting appropriately. SKIN: Clear. No rashes. No jaundice. DIAGNOSTICS: WBCs 8.95, hemoglobin 15, hematocrit 43.6, platelets 161. Sodium 135, potassium 3.7, chloride 100, CO2 16, BUN 12, creatinine 1, glucose 124. Lipase elevated at 1151. ASSESSMENT/PLAN: This is a 33-year-old male with history of presumed alcohol- related pancreatitis and alcohol abuse, presenting with: 1. Nausea, vomiting and abdominal pain, most consistent with acute alcohol- related pancreatitis. a. Plan: The patient will be admitted to the medical-surgical floor where he will be treated supportively with intravenous Dilaudid, antiemetics, intravenous fluids, and bowel rest. His diet can be advanced as tolerated. We will check triglycerides, as well as an abdominal ultrasound for completeness. 2. Uncontrolled hypertension, possibly exacerbated by acute pain versus alcohol withdrawal. a. Plan: The patient will be resumed on his current medications, which include Norvasc 10 mg daily, and Toprol-XL 50 mg daily. He will be placed on the Clinical [place] Withdrawal Assessment protocol. 3. History of tobacco abuse. a. Plan: The patient is not interested in nicotine replacement while in the hospital. Smoking is a known risk factor for pancreatitis, which I forgot to mention to the patient, and should be discussed tomorrow. 4. Depressed mood. a. Plan: The patient did report some depression during our encounter. He denies any suicidal or homicidal ideation. Recommend that the patient be referred for outpatient treatment, and establish with a primary care provider upon discharge. 5. Mild Anion Gapped Metabolic Acidosis Plan: Hydration and repeat chemistry panel in AM The patient requests to be full code status. /[id number]/MODL MTDD
[2018-05-24] MEDS: PROMETHAZINE HCL 25 MG/ML INJ IVP PRN ×2 (16:24→22:39)
[2018-05-24] MEDS: THIAMINE HCL 500 MG in NS 100 ML IV SCH (16:31)
[2018-05-24] MEDS: NS 1,000 ML IV SCH ×2 (16:31→22:48)
[2018-05-24] MEDS: LORazepam 2 MG/ML INJ IVP PRN ×2 (17:38→21:42)
[2018-05-24] MEDS: HYDROmorphONE/DILAUDID 2 MG/ML INJ IVP PRN ×2 (18:22→22:40)
[2018-05-24] MEDS: FAMOTIDINE 20 MG TAB PO SCH (21:42)
[2018-05-25] MEDS: ONDANSETRON 4 MG/2 ML VIAL IVP PRN (01:23)
[2018-05-25] MEDS: LORazepam 2 MG/ML INJ IVP PRN ×4 (02:43→20:46)
[2018-05-25] MEDS: HYDROmorphONE/DILAUDID 2 MG/ML INJ IVP PRN ×2 (03:04→08:25)
[2018-05-25 04:00] LABS: PLATELET COUNT 120 10^3/uL (150-400)
[2018-05-25] MEDS: PROMETHAZINE HCL 25 MG/ML INJ IVP PRN ×4 (04:43→20:47)
[2018-05-25] MEDS ORDERED: PANTOPRAZOLE SODIUM 40 MG TAB PO SCH (09:00)
[2018-05-25] MEDS ORDERED: METOPROLOL SUCCINATE XR 50 MG TAB PO SCH (09:00)
[2018-05-25] MEDS ORDERED: FAMOTIDINE 20 MG/2 ML SDV IVP SCH (10:00)
--- NOTE | 2018-05-25 10:04 | HOSPPROG ---
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 critical care cns, they are aware of relapse * Obesity BMI 33 * Elevated Triglycerides -suspect pancreatitis due to Etoh > hypertriglyceridemia -check lipid panel in am - consider initiate tx * Etoh withdrawal -IV ativan per CIWA * HTN -unable to tolerate PO -IV hydralazine prn Subjective: Tried to take PO BP med and has immediate increased pain with vomiting. Pain still severe, no better, no hunger, IV dilaudid works but effect only lasts 1 hour, then he sits in severe pain for 3 hours waiting for next dose. Objective: Vital Signs Temp Pulse Resp BP Pulse Ox 36.7 C 72 16 160/105 H 95 05/25/18 04:00 05/25/18 04:00 05/25/18 04:00 05/25/18 04:00 05/25/18 04:00 Laboratory Results 05/25/18 03:36 05/25/18 03:36 05/24/18 05/25/18 05/26/18 05:59 05:59 05:59 Intake Total 3400 Output Total 1050 Balance 2350 - Physical Exam Constitutional: no apparent distress, appears nourished, not in pain Cardiovascular: regular rate and rhythym, no murmur, rub, or gallop Respiratory: no respiratory distress, no rales or rhonchi, clear to auscultation Gastrointestinal: normoactive bowel sounds, soft, non-tender abdomen, no palpable masses Skin: no rashes or abrasions, no fluctuance, no induration Neurologic: AAOx3, sensation intact bilaterally Psychiatric: interacting appropriately, not anxious, not encephalopathic, thought process linear ICD10 Worksheet Patient Problems: Problems Problem Status Onset Acute alcoholic pancreatitis Acute
[2018-05-25] MEDS: NS 1,000 ML IV SCH ×2 (10:32→20:47)
[2018-05-25] MEDS: hydrALAZINE 20 MG/ML VIAL IVP PRN ×2 (10:32→19:32)
[2018-05-25] MEDS: FAMOTIDINE 20 MG/NACL 50 ML IV SCH ×2 (10:32→20:46)
[2018-05-25] MEDS: THIAMINE HCL 500 MG in NS 100 ML IV SCH (10:32)
[2018-05-25] MEDS: FAMOTIDINE 20 MG TAB PO SCH (10:50)
[2018-05-25] MEDS: HYDROmorphONE/DILAUDID 1 MG/ML INJ IVP PRN ×2 (11:16→13:47)
--- NOTE | 2018-05-25 12:13 | PDMN ---
Medical Necessity Medical necessity: Pt meets inpt criteria per MD order and MCG M-250. Pancreatitis, 2 days. Est LOS>2MN for management of acute alcohol related pancreatitis presenting w/severe pain, nausea/vomiting. Lipase elevated at 1151 on admission, HTN w/bp 170/136 on admission. Pt continues to be unable to tolerate PO, nauseated BP still elevated at 160/105. IVF, IV thiamine, IV Phenergan/Zofran for nausea, IV Dilaudid for pain, IV Hydralazine for elev BP, IV Pepcid. Med nec ongoing inpt monitoring and treatment for above conditions.
[2018-05-25] MEDS: ENALAPRILAT DIHYDRATE 1.25 MG/ML VIAL IVP PRN (15:27)
[2018-05-25] MEDS: HYDROmorphone HCL 0.5 MG/0.5 ML SYR IVP PRN ×4 (15:50→23:54)
[2018-05-25] MEDS ORDERED: IOPAMIDOL (ISOVUE-300) 100 ML BTL ONE (16:15)
[2018-05-25] MEDS: METOPROLOL TARTRATE 5 MG/5 ML INJ IVP SCH ×2 (16:22→21:58)
--- NOTE | 2018-05-25 17:09 | HOSPPROG ---
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 latex spooler, they are aware of relapse * Obesity BMI 33 * Elevated Triglycerides -suspect pancreatitis due to Etoh > hypertriglyceridemia -check lipid panel in am - consider initiate tx * Etoh withdrawal -IV ativan per CIWA * HTN -unable to tolerate PO -IV hydralazine prn Objective: Vital Signs Temp Pulse Resp BP Pulse Ox 36.9 C 85 16 177/119 H 95 05/25/18 12:00 05/25/18 12:00 05/25/18 12:00 05/25/18 12:00 05/25/18 12:00 Laboratory Results 05/25/18 03:36 05/25/18 03:36 05/24/18 05/25/18 05/26/18 05:59 05:59 05:59 Intake Total 2400 Output Total 1050 500 Balance 1350 -500 ICD10 Worksheet Patient Problems: Problems Problem Status Onset Acute alcoholic pancreatitis Acute
--- NOTE | 2018-05-25 18:47 | ASMTCMCOM ---
CM Note CM Note Notes: 05/25/2018 Case Management Note Pt admitted for ETOH pancreatitis. Pt on CIWA protocol. Discussed pt during rounds. Met w/pt later in the morning. Completed CAGE. Pt has a large amount of community support. Pt completed a 90 day inpatient rehab program approximately 2 years ago at the [facility] in [place]. Pt participates regulary in group therapy, takes classes at [facility], has a sober coach builder and has contacted a private counselor Leonel Trivedi. Provided a list at pt request for psychiatrist in the [facility]. Pt reports history of depression treated with prozac in the past. Pt has had significant life stressors in the last year reporting 3 surgeries himself and multiple deaths of loved ones. Pt declined spiritual care. Case Management d/c poc: independent resuming all his community supports at d/c. Case Management available if needs change. Date Signed: 05/25/2018 02:46 PM Electronically Signed By:Farideh Okeefe RN
--- NOTE | 2018-05-25 18:47 | ASMTCAGE ---
CAGE Do you feel you ought to Answers: Yes cut down on your drinking or drug use? Do people annoy you by Answers: Yes criticizing your drinking or drug use? Do you feel guilty about Answers: Yes your drinking or drug use? 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 Additional Comments Pt denites daily drinking. Pt is well connected to community resources to address recent relapse. Date Signed: 05/25/2018 02:49 PM Electronically Signed By:Farideh Okeefe RN
[2018-05-26] MEDS: ENALAPRILAT DIHYDRATE 1.25 MG/ML VIAL IVP PRN ×2 (00:01→23:45)
[2018-05-26] MEDS: LORazepam 2 MG/ML INJ IVP PRN ×7 (00:19→21:56)
[2018-05-26] MEDS: HYDROmorphone HCL 0.5 MG/0.5 ML SYR IVP PRN ×8 (03:09→23:58)
[2018-05-26] MEDS: METOPROLOL TARTRATE 5 MG/5 ML INJ IVP SCH ×4 (03:10→22:00)
[2018-05-26] MEDS: ONDANSETRON 4 MG/2 ML VIAL IVP PRN ×4 (05:55→21:50)
[2018-05-26 06:42] LABS: PLATELET COUNT 120 10^3/uL (150-400)
[2018-05-26] MEDS: PROMETHAZINE HCL 25 MG/ML INJ IVP PRN (07:43)
[2018-05-26] MEDS: FAMOTIDINE 20 MG/NACL 50 ML IV SCH ×2 (09:26→21:48)
[2018-05-26] MEDS: THIAMINE HCL 500 MG in NS 100 ML IV SCH (12:33)
[2018-05-26] MEDS: NS 1,000 ML IV SCH ×2 (12:35→21:50)
--- NOTE | 2018-05-26 14:02 | HOSPPROG ---
Hospitalist Progress Note Assessment/Plan: DIAGNOSES: * acute alcohol-induced pancreatitis * Per CT scan report question if there is either some stone or other debris in the pancreatic duct causing partial obstruction * acute alcohol withdrawal with delirium requiring ongoing benzodiazepine therapy * hypertension and tachycardia due to withdrawal * acute metabolic acidosis * mild alcohol induced hepatitis * alcoholism with thiamine deficiency Seen by me today on hospitalist rounds as well as multidisciplinary rounds Overall he is doing much better in terms of alcohol withdrawal, still has some CIWA numbers that are abnormal but I think this is largely due to his blood pressure and pulse and do not think he really has much need for benzodiazepine at this time. The blood pressure issue I think is more due to the pain of his pancreatitis and his chronic hypertension and anxiety disorders rather then his alcohol withdrawal at this point. His pulse is getting notably better In terms of his pancreatitis he is improving but he still has moderate pain and some tenderness and no appetite at all. With CT scan showing some possible material causing partial obstruction of pancreatic duct, I feel we need to evaluate this further to make sure there is not something going there to perpetuate the pancreatitis. He does mention to me that he has had intermittent episodes that feel like pancreatitis even when he was not drinking for 9 months a couple years ago. PLANS: * Will increase antihypertensive now * Will start to decrease benzodiazepine as tolerated * I will review his CT scan with Gastroenterology; question would he benefit from endoscopic ultrasound or ERCP/MRCP * Continue p.o. Fluids as tolerated, trial of some crackers or other small bits of food to eat * Continue analgesics as needed * He will need some antidepressant medication as he leaves the hospital * He is already plugged in with AA, another alcohol group therapy session, and is looking to get hooked up with a 1 on 1 counselor Seen by me today on hospitals rounds and multidisciplinary rounds SUBJECTIVE: Still with the same abdomen back pain related to his pancreatitis though improved in severity No nausea but no appetite and does not feel like he wants to try and eat yet Is taking some clear liquids okay OBJECTIVE Vitals reviewed: Still hypertensive today but his pulse is notably better through the day after 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 There is acute pancreatitis without fluid collection mass or necrosis. There is per the radiologist's report some dilatation of a proximal portion of the pancreatic duct with possible intraluminal "debris". Lab data: CO2 remains low at 20 but with anion gap OK Rest of metabolic panel normal Platelets [id number], mild normocytic anemia remained stable. Objective: Vital Signs Temp Pulse Resp BP Pulse Ox 36.9 C 99 16 160/107 H 94 05/26/18 11:32 05/26/18 11:32 05/26/18 11:32 05/26/18 13:21 05/26/18 11:32 Laboratory Results 05/26/18 06:18 05/26/18 03:50 05/25/18 05/26/18 05/27/18 06:59 06:59 06:59 Intake Total 2400 1522 Output Total 1050 1150 Balance 1350 372 - Time Spent With Patient Time Spent with Patient: greater than 35 minutes Time Spent with Patient: Greater than 35 minutes spent on this patients care, greater than 50% of time spent counseling, educating, and coordinating care regarding the above mentioned plan. ICD10 Worksheet Patient Problems: Problems Problem Status Onset Acute alcoholic pancreatitis Acute
[2018-05-26] MEDS: hydrALAZINE 20 MG/ML VIAL IVP PRN (18:51)
[2018-05-27] MEDS: PROMETHAZINE HCL 25 MG/ML INJ IVP PRN ×2 (00:25→16:52)
[2018-05-27] MEDS: METOPROLOL TARTRATE 5 MG/5 ML INJ IVP SCH ×6 (00:31→11:32)
[2018-05-27] MEDS: hydrALAZINE 20 MG/ML VIAL IVP PRN ×2 (00:43→20:20)
[2018-05-27] MEDS ORDERED: HYDROmorphone HCL 0.5 MG/0.5 ML SYR IVP ONE (00:48)
[2018-05-27] MEDS: HYDROmorphone HCL 0.5 MG/0.5 ML SYR IVP PRN ×6 (00:48→20:12)
[2018-05-27] MEDS: LORazepam 2 MG/ML INJ IVP PRN ×5 (00:51→07:50)
[2018-05-27] MEDS: ONDANSETRON 4 MG/2 ML VIAL IVP PRN ×3 (03:36→20:14)
[2018-05-27] MEDS: FAMOTIDINE 20 MG/NACL 50 ML IV SCH ×2 (07:39→20:12)
[2018-05-27] MEDS: THIAMINE HCL 100 MG TAB PO SCH (11:19)
[2018-05-27] MEDS: SERTRALINE HCL 50 MG TAB PO SCH (11:20)
[2018-05-27] MEDS ORDERED: HYDROmorphONE/DILAUDID 1 MG/ML INJ IVP PRN ×2 (14:15)
--- NOTE | 2018-05-27 14:28 | HOSPPROG ---
Hospitalist Progress Note Assessment/Plan: DIAGNOSES: * acute alcohol-induced pancreatitis * Per CT scan report question if there is either some stone or other debris in the pancreatic duct causing partial obstruction * acute alcohol withdrawal with delirium * This is now resolved * hypertension and tachycardia due to withdrawal as well as chronic likely poorly controlled hypertension * Tachycardia now resolved, still with some hypertension needing titration of medications * acute metabolic acidosis resolved * mild alcohol induced hepatitis * alcoholism with thiamine deficiency receiving replacement Seen by me today on hospitalist rounds as well as multidisciplinary rounds Alcohol withdrawal I think is completely resolved at this time I am still concerned about where he is with pancreatitis and he does not seem ready to eat yet. Still concerned about the possibility of something possibly obstructing duct. PLANS: * Resume his Norvasc and add some scheduled oral hydralazine, stop the Vasotec were * Will attempt to discontinue benzodiazepines at this point in at antidepressant * I will review his CT scan with Gastroenterology; question would he benefit from endoscopic ultrasound or ERCP/MRCP * Recheck liver panel * Discontinue IV fluids, allow him to drink clear fluids will hold off on further solid food at this time * Continue analgesics as needed but trying to wean doses down at this point * He is already plugged in with AA, another alcohol group therapy session, and is looking to get hooked up with a 1 on 1 counselor Seen by me today on hospitals rounds and multidisciplinary rounds SUBJECTIVE: This morning the patient stated that his abdominal pain was doing much better and that he had nipple on some crackers and felt he was doing quite well, was drinking some fluid. However he had still used 2 doses of Dilaudid this morning , and this afternoon after eating just a couple of bites of food he had apparently extensive vomiting. This was associated with some worsening abdominal pain. He also states that he had some painful region action to a dose of IV enalapril last night describes a sudden diffuse pain with a sense of cramping but without actual muscle cramping in the neck back chest abdomen flanks and thighs. This quite a down after 2-3 minutes but he says he still feels slightly achy afterwards. He says he had a milder similar reaction the night before after a dose of enalapril. There is no itching, rash, throat swelling, dyspnea or wheezing. 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 without rebound, bowel sounds present limbs warm, no edema iv site ok Objective: Vital Signs Temp Pulse Resp BP Pulse Ox 36.8 C 83 17 153/92 H 97 05/27/18 11:38 05/27/18 11:38 05/27/18 11:38 05/27/18 11:38 05/27/18 11:38 Laboratory Results 05/26/18 06:18 05/26/18 03:50 05/26/18 05/27/18 05/28/18 06:59 06:59 06:59 Intake Total 1522 870 Output Total 1150 1780 Balance 372 -910 - Time Spent With Patient Time Spent with Patient: greater than 35 minutes Time Spent with Patient: Greater than 35 minutes spent on this patients care, greater than 50% of time spent counseling, educating, and coordinating care regarding the above mentioned plan. ICD10 Worksheet Patient Problems: Problems Problem Status Onset Acute alcoholic pancreatitis Acute
[2018-05-27] MEDS ORDERED: HYDROmorphone HCL 0.5 MG/0.5 ML SYR IVP PRN (14:30)
[2018-05-27] MEDS: hydrALAZINE 25 MG TAB PO SCH ×2 (15:33→20:13)
[2018-05-28] MEDS: PROMETHAZINE HCL 25 MG/ML INJ IVP PRN ×3 (01:53→18:36)
[2018-05-28] MEDS: HYDROmorphone HCL 0.5 MG/0.5 ML SYR IVP PRN ×6 (01:53→22:43)
[2018-05-28] MEDS: hydrALAZINE 20 MG/ML VIAL IVP PRN (01:54)
[2018-05-28] MEDS: ONDANSETRON 4 MG/2 ML VIAL IVP PRN ×2 (05:54→14:24)
[2018-05-28] MEDS: hydrALAZINE 25 MG TAB PO SCH ×4 (05:54→20:49)
[2018-05-28] MEDS: SERTRALINE HCL 50 MG TAB PO SCH (08:26)
[2018-05-28] MEDS: THIAMINE HCL 100 MG TAB PO SCH (08:26)
[2018-05-28] MEDS: FAMOTIDINE 20 MG/NACL 50 ML IV SCH ×2 (08:27→20:48)
--- NOTE | 2018-05-28 13:13 | ASMTCMCOM ---
CM Note CM Note Notes: CM met with Pt during rounds. Addressed the multiple resources he has connected with in the community that help to support his sobriety. Pt will d/c without identified CM needs. CM will follow for changes. D/C Plan: Independent with his own community resources for support of sobriety. Date Signed: 05/28/2018 01:12 PM Electronically Signed By:Aruna White
--- NOTE | 2018-05-28 14:18 | HOSPPROG ---
Hospitalist Progress Note Assessment/Plan: DIAGNOSES: * acute alcohol-induced pancreatitis * At this point I would expect him to be able to eat and drink but he continues to have episodes of pain and vomiting with any attempts to eat or drink * ? If he does have some pancreatic ductal abnormality or development of a pseudocyst * acute alcohol withdrawal with delirium * This is now resolved, off benzodiazepine * hypertension and tachycardia due to withdrawal as well as chronic likely poorly controlled hypertension * Tachycardia now resolved, hypertension improving but still needs further titration of medicines though his other symptoms may be aggravating this * acute metabolic acidosis resolved * mild alcohol induced hepatitis is now resolved * alcoholism with thiamine deficiency receiving replacement Seen by me today on hospitalist rounds as well as multidisciplinary rounds I reviewed his symptoms and CT scan result today with Dr. Larry Gutierres. After reviewing his case in detail we have elected to proceed with MRCP, to assess for either ductal abnormalities or pseudocyst PLANS: * Resume his Norvasc and add some scheduled oral hydralazine, stop the Vasotec were * Will attempt to discontinue benzodiazepines at this point in at antidepressant * Will check orbital x-rays at this point, and if no metal will order MRCP * Continue analgesics as needed but continue trying to wean doses down at this point * He is already plugged in with AA, another alcohol group therapy session, and is looking to get hooked up with a 1 on 1 counselor Seen by me today on hospitals rounds and multidisciplinary rounds SUBJECTIVE: Feels fairly well overall except when he tries to eat or drink which induces epigastric pain and vomiting, is not really keeping food or fluids down so far No fever symptoms No further symptoms of withdrawal OBJECTIVE Vitals reviewed: Still some hypertension otherwise stable Exam: alert oriented reasonably relaxed, no tremor skin warm dry color ok no jaundice resps not labored lungs clear BSs heart regular abd soft nondistended wet machine tender in the epigastrium without rebound, bowel sounds present limbs warm, no edema iv site ok Lab data: Liver panel normal Objective: Vital Signs Temp Pulse Resp BP Pulse Ox 36.8 C 81 16 158/97 H 95 05/28/18 07:43 05/28/18 07:43 05/28/18 07:43 05/28/18 11:17 05/28/18 07:43 Laboratory Results 05/26/18 06:18 05/26/18 03:50 05/27/18 05/28/1805/29/18 06:59 06:59 06:59 Intake Total 870 900 Output Total 1780 Balance -910 900 ICD10 Worksheet Patient Problems: Problems Problem Status Onset Acute alcoholic pancreatitis Acute
[2018-05-29] MEDS: PROMETHAZINE HCL 25 MG/ML INJ IVP PRN ×3 (00:24→20:14)
[2018-05-29] MEDS: HYDROmorphone HCL 0.5 MG/0.5 ML SYR IVP PRN ×5 (02:44→20:13)
[2018-05-29] MEDS: hydrALAZINE 25 MG TAB PO SCH ×4 (06:47→20:13)
[2018-05-29] MEDS: FAMOTIDINE 20 MG/NACL 50 ML IV SCH ×2 (10:40→20:13)
[2018-05-29] MEDS: THIAMINE HCL 100 MG TAB PO SCH (10:40)
[2018-05-29] MEDS: SERTRALINE HCL 50 MG TAB PO SCH (10:41)
[2018-05-29] MEDS: ONDANSETRON 4 MG/2 ML VIAL IVP PRN (15:29)
--- NOTE | 2018-05-29 17:16 | HOSPPROG ---
Hospitalist Progress Note Assessment/Plan: DIAGNOSES: * acute alcohol-induced pancreatitis * At this point I would expect him to be able to eat and drink but he continues to have episodes of pain and vomiting with any attempts to eat or drink * ? If he does have some pancreatic ductal abnormality or development of a pseudocyst * acute alcohol withdrawal with delirium * This is now resolved, off benzodiazepine * hypertension and tachycardia due to withdrawal as well as chronic likely poorly controlled hypertension * Tachycardia now resolved, hypertension improving but still needs further titration of medicines though his other symptoms may be aggravating this * acute metabolic acidosis resolved * mild alcohol induced hepatitis is now resolved * alcoholism with thiamine deficiency receiving replacement Seen by me today on hospitalist rounds as well as multidisciplinary rounds I reviewed his symptoms and MRI scan result today with Dr. Larry Gutierres. The patient has come in with really very mild uncomplicated pancreatitis and now 5 days later after appropriate bowel rest and IV hydration, he is unable to eat or drink anything without market increases in pain and nausea vomiting. I have discussed with the patient the option for placing nasal jejunal feeding tube to allow for nutrition with rest of the pancreas, but he does not want to use this at present. As he is not really hydrating he will need a some IV fluids and is accepting of that. I had long discussion with the patient at the bedside regarding his progress. Is not clear to me why he is not resolving his pancreatitis. Both CT scan and MRI scan are showing some dilation of pancreatic duct with a question of some intraluminal abnormality which could potentially be some type of debris or stricture. However the findings are subtle enough there that the radiologist's and Dr. Gutierres were not willing to commit that they think this is definitely an obstructive issue causing ongoing pancreatitis. The patient does have prior episodes of pancreatitis which could leave him susceptible to development of stricture. I have requested that we consider either ERCP or endoscopic ultrasound. Dr. Gutierres will talk to Dr. Og tomorrow when he is back in town to see if he thinks that endoscopic ultrasound might be appropriate at this time. PLANS: * Will have him go back to NPO for the moment, begin IV fluids * Continue analgesics as needed along with antiemetic * Continue Norvasc, metoprolol and added scheduled oral hydralazine; did not tolerate p.r.n. Vasotec * No longer needing any Ativan for withdrawals that has resolved * I discussed using an antidepressant for long-term management of anxiety and he is wanting to do that so have added Zoloft * He is already plugged in with AA, another alcohol group therapy session, and is looking to get hooked up with a 1 on 1 counselor Seen by me today on hospitals rounds and multidisciplinary rounds SUBJECTIVE: Feels fairly well overall except when he tries to eat or drink which induces epigastric pain and vomiting, is not really keeping food or fluids down so far No fever symptoms No further symptoms of withdrawal OBJECTIVE Vitals reviewed: Still some hypertension otherwise stable Exam: alert oriented reasonably relaxed, no tremor skin warm dry color ok no jaundice resps not labored lungs clear BSs heart regular 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 without rebound, bowel sounds present limbs warm, no edema iv site ok Lab data: Liver panel normal Objective: Vital Signs Temp Pulse Resp BP Pulse Ox 36.8 C 69 18 150/93 H 95 05/29/18 15:35 05/29/18 15:35 05/29/18 15:35 05/29/18 15:35 05/29/18 15:35 Laboratory Results 05/26/18 06:18 05/26/18 03:50 05/28/18 05/29/18 05/30/18 06:59 06:59 06:59 Intake Total 1200 1300 Balance 1200 1300 - Time Spent With Patient Time Spent with Patient: greater than 35 minutes Time Spent with Patient: Greater than 35 minutes spent on this patients care, greater than 50% of time spent counseling, educating, and coordinating care regarding the above mentioned plan. ICD10 Worksheet Patient Problems: Problems Problem Status Onset Acute alcoholic pancreatitis Acute
[2018-05-29] MEDS: NS 1,000 ML IV SCH (18:22)
[2018-05-30] MEDS: ONDANSETRON 4 MG/2 ML VIAL IVP PRN (00:21)
[2018-05-30] MEDS: HYDROmorphone HCL 0.5 MG/0.5 ML SYR IVP PRN ×5 (00:25→20:49)
[2018-05-30 04:36] LABS: PLATELET COUNT 154 10^3/uL (150-400)
[2018-05-30] MEDS: PROMETHAZINE HCL 25 MG/ML INJ IVP PRN ×4 (04:36→20:50)
[2018-05-30] MEDS: NS 1,000 ML IV SCH (04:42)
[2018-05-30] MEDS: hydrALAZINE 25 MG TAB PO SCH ×4 (05:21→20:16)
[2018-05-30] MEDS: FAMOTIDINE 20 MG/NACL 50 ML IV SCH ×2 (11:12→20:15)
[2018-05-30] MEDS: THIAMINE HCL 100 MG TAB PO SCH (11:12)
[2018-05-30] MEDS: SERTRALINE HCL 50 MG TAB PO SCH (11:13)
--- NOTE | 2018-05-30 13:21 | GCON ---
DATE OF CONSULTATION: 05/30/2018 CHIEF COMPLAINT: A 33-year-old male with pancreatitis with persistent abdominal pain. HISTORY OF PRESENT ILLNESS: I have been asked to see this patient in consultation by Dr. Rojas for persistent abdominal pain after an episode of pancreatitis. The patient is a 33-year-old male with h istory of chronic alcohol use. He has had several bouts of pancreatitis in the past. His most recen t episode of pancreatitis was 5 to 6 months ago. He does drink whiskey on a regular basis. He prese nted to the emergency department with nausea and vomiting. He was unable to eat or drink. He develo ped severe abdominal pain with radiation to his back. Described pain as being 7/10 and constant. He was noted to have an elevated lipase. On imaging he had a right upper quadrant ultrasound that was normal, no evidence of cholelithiasis. CT scan showed acute pancreatitis without peripancreatic gay ection or necrosis. There was reported dilation the proximal pancreatic duct near the pancreatic bod y. MRI was also obtained. This showed mild hepatomegaly with a slightly diminished fusiform dilatat ion of the pancreatic duct below the pancreatic neck with evidence of pancreatitis. There is equivoc al evidence of intraluminal ductal debris. There was no evidence of pseudocyst. The patient has not been able to eat or drink since admission. He continues to have abdominal pain. Describes pain now as being constant and burning. He does have a history of reflux disease and is on omeprazole daily. Labs reveal a normal white count of 4.91 with a hemoglobin of 12.3, hematocrit 36.6. Serum chemistri es reveal normal liver function tests. ALT of 52, alkaline phosphatase of 68, an AST of 27. Lipid p roberto was also drawn was normal. I was asked to see the patient for further evaluation. PAST MEDICAL HISTORY: Remarkable for hypertension, gastroesophageal reflux disease. PAST SURGICAL HISTORY: Remarkable for previous herniorrhaphy, knee surgery, tonsillectomy, adenoidec angélica, appendectomy. MEDICATIONS: Prior to admission included Norvasc, metoprolol and omeprazole. ALLERGIES: Sulfa, Tramadol. SOCIAL HISTORY: He drinks alcohol as above. He smokes a half pack of cigarettes a day. FAMILY HISTORY: Negative. As it pertains to chief complaint, otherwise, it is remarkable for alcoho lism. REVIEW OF SYSTEMS: Negative for 10 systems other than as mentioned in HPI. PHYSICAL EXAM: VITAL SIGNS: 150/107, heart rate 68, 16 respiratory rate, 98% sat on room air, 37.7. HEENT: Normocephalic, atraumatic. EOMI. NECK: Supple. No cervical adenopathy. No thyromegaly. LUNGS: Clear to auscultation. CARDIAC EXAM: Normal S1, S2 without murmur. ABDOMEN: Slight tende rness to palpation, soft, normal bowel sounds. No hepatomegaly appreciated, no splenomegaly. EXTREM ITIES: Without clubbing, cyanosis, edema. NEURO: Nonfocal. SKIN: Warm, dry, intact. PSYCH: Mary rt, oriented x3 with normal affect. LABORATORY DATA: As above. IMPRESSION: A 33-year-old male with history of recurrent episodes of pancreatitis, may have chronic pancreatitis. Rule out ulcer disease. RECOMMENDATIONS: 1. Proceed with diagnostic endoscopy. 2. High dose PPI. 3. Repeat lipase. 4. Continue to follow clinically. 5. Advanced diet as tolerated. 6. Clear liquids. 7. If unable to tolerate food, would recommend nasal jejunal feeding. 8. We will follow with you. /[id number]/MODL
[2018-05-30] MEDS ORDERED: LR 1,000 ML IV ONE (13:46)
--- NOTE | 2018-05-30 14:14 | HOSPPROG ---
Hospitalist Progress Note Assessment/Plan: DIAGNOSES: # acute alcohol-induced pancreatitis * with slow resolution of his sxs, still unable to tolerate even clear liquids without significant increases in his pain * discussed with GI who have reviewed his MRI and do not think anything further is needed at this time * reviewed care plan with patient, continue conservative mgmt with IVF, pain medications, NPO--will consider tube feeding if not improving # acute alcohol withdrawal with delirium * This is now resolved, off benzodiazepine * discussed with patient importance of alcohol abstinence and he understands, will look at resources prior to dc # hypertension and tachycardia -due to withdrawal as well as chronic likely poorly controlled hypertension * Tachycardia now resolved, hypertension improving and continued on hydralazine and amlodipine # acute metabolic acidosis resolved # mild alcohol induced hepatitis is now resolved # alcoholism with thiamine deficiency receiving replacement # IP status--still unable to tolerate PO and will need to remain in house until able to take nutrition Patient new to my care. Old records reviewed and summarized as above. MRI personally reviewed and notable for acute uncomplicated pancreatitis. Subjective: no significant overnight events, patient still unable to tolerate PO and having increased pain even with fluids Objective: Vital Signs Temp Pulse Resp BP Pulse Ox 36.7 C 78 16 173/108 H 98 05/30/18 13:59 05/30/18 13:59 05/30/18 13:59 05/30/18 13:59 05/30/18 13:59 Laboratory Results 05/30/18 03:34 05/30/18 03:34 05/29/18 05/30/18 05/31/18 05:59 05:59 05:59 Intake Total 1300 1860 Balance 1300 1860 awake alert nad anciteric op clear rrr no mrg cta b soft dec bs no rebound or guarding no cce warm dry well perfused oriented appropriate ICD10 Worksheet Patient Problems: Problems Problem Status Onset Acute alcoholic pancreatitis Acute
[2018-05-30] MEDS ORDERED: MIDAZOLAM 2 MG/2 ML VIAL IVP ONE (14:59)
[2018-05-30] MEDS ORDERED: ACETAMINOPHEN 500 MG TAB PO PRN (15:01)
[2018-05-30] MEDS ORDERED: NALOXONE HCL 0.4 MG/ML INJ IVP PRN (15:01)
[2018-05-30] MEDS ORDERED: ONDANSETRON 4 MG/2 ML VIAL IVP PRN (15:01)
[2018-05-30] MEDS ORDERED: LR 500 ML IV PRN (15:01)
[2018-05-30] MEDS ORDERED: PROMETHAZINE HCL 25 MG/ML INJ IVP PRN (15:01)
[2018-05-30] MEDS ORDERED: DEXAMETHASONE 4 MG/ML VIAL IVP PRN (15:01)
--- NOTE | 2018-05-30 15:01 | PDANEPAE ---
ANE Past Medical History - Cardiovascular History Hx Hypertension: Yes - Pulmonary History Hx Oxygen in Use at Home: No Hx Sleep Apnea: No Sleep Apnea Screening Result - Last Documented: Positive - Endocrine History Hx Diabetes: No - Chronic Pain History Chronic Pain: No ANE Review of Systems Review of Systems: ANE Patient History - Allergies Allergies/Adverse Reactions: haloperidol [From Haldol] Allergy (Verified 05/24/18 14:43) Other-Enter Comments Sulfa (Sulfonamide Antibiotics) Allergy (Verified 05/24/18 14:43) Dyspnea tramadol Allergy (Verified 05/24/18 14:43) Other-Enter Comments - Home Medications Home medications: home medication list seen and reviewed Home Medications: Metoprolol Succinate Xr [Toprol Xl 50 mg (*)] 50 mg PO DAILY 05/24/18 [Last Taken 05/24/18 @ 0600] Omeprazole 40 mg PO DAILY 05/24/18 [Last Taken 05/24/18] amLODIPine BESYLATE [Norvasc 10 mg (*)] 10 mg PO DAILY 05/24/18 [Last Taken 07/31] - NPO status NPO Status: no food or drink >8 hours NPO Since - Liquids (Date): 05/30/18 NPO Since - Liquids (Time): 00:00 NPO Since - Solids (Date): 05/30/18 NPO Since - Solids (Time): 00:00 - Anes Hx Anes Hx: no prior problems - Smoking Hx Smoking Status: Current every day smoker ANE Labs/Vital Signs - Labs Result Diagrams: 05/30/18 03:34 05/30/18 03:34 - Vital Signs Blood Pressure: 173/108 Heart Rate: 78 Respiratory Rate: 16 O2 Sat (%): 98 Height: 198.12 cm Weight: 132.3 kg ANE Physical Exam - Airway Neck exam: FROM Mallampati Score: Class 1 Mouth exam: normal dental/mouth exam - Pulmonary Pulmonary: no respiratory distress, no rales or rhonchi, clear to auscultation - Cardiovascular Cardiovascular: regular rate and rhythym, no murmur, rub, or gallop - ASA Status ASA Status: II ANE Anesthesia Plan Anesthesia Plan: MAC
[2018-05-30] MEDS ORDERED: PROPOFOL 200 MG/20 ML VIAL ONE ×2 (15:04→15:13)
[2018-05-30] MEDS ORDERED: MIDAZOLAM 2 MG/2 ML VIAL ONE (15:04)
[2018-05-30] MEDS ORDERED: LIDOCAINE 2% 2 ML INJ ONE (15:04)
--- NOTE | 2018-05-30 15:21 | GIREPORT ---
[facility] - Endoscopy Department Patient Name: Matt Wiggins Procedure Date: 05/30/2018 2:59 PM Patient Type: Inpatient Attending MD/ ER Physician: Larry Gutierres MD Procedure: Upper GI endoscopy Indications: Epigastric abdominal pain, Esophageal reflux, Alcoholic pancreatitis. Providers: Larry Gutierres MD Medicines: Propofol per Anesthesia Complications: No immediate complications. Description of Procedure: After obtaining informed consent, the endoscope was passed under direct vision. Throughout the procedure, the patient's blood pressure, pulse, and oxygen saturations were monitored continuously. The Endoscope was intro duced through the mouth, and advanced to the second part of duodenum. The [facility] GI endoscopy was accomplished without difficulty. The patient tolerated th e procedure well. Findings: The examined esophagus was normal. A small hiatal hernia was present. Diffuse moderate inflammation characterized by congestion (edema) and erythema was found in the gastric antrum. Biopsies were taken with a co ld forceps for Helicobacter pylori testing. The examined duodenum was normal. Estimated Blood Loss: Estimated blood loss: none. Post Op Diagnosis: - Normal esophagus. - Small hiatal hernia. - Gastritis. Biopsied. - Normal examined duodenum. Recommendation: - Await pathology results. - Follow an antireflux regimen. - Use Protonix (pantoprazole) 40 mg IV BID. - Clear liquid diet. - Thank you for allowing me to participate in the care of your patient. Attending Participation: I personally performed the entire procedure. Larry Gutierres MD Larry Gutierres MD 05/30/2018 3:20:53 PM This report has been signed electronicallyStehsan Gutierres MD Number of Addenda: 0 Note Initiated On: 05/30/2018 2:59 PM [email or web address]
[2018-05-30] MEDS ORDERED: fentaNYL 100 MCG/2 ML INJ ONE (15:37)
[2018-05-30] MEDS: fentaNYL 100 MCG/2 ML INJ IVP PRN ×2 (15:38→15:47)
--- NOTE | 2018-05-30 17:48 | POSTANESTH ---
Post Anesthetic Evaluation Cardiovascular Status: Normal, Stable Respiratory Status: Normal, Stable, Similar to Pre-op Cond. Level of Consciousness/Mental Status: Can Participate in Eval, Alert and Oriented Pain Control: Adequate, Prn Tx Ordered Nausea/Vomiting Control: Adequate, Prn Tx Ordered Complications Possibly Related to Anesthesia: None Noted
--- NOTE | 2018-05-30 19:37 | ASMTCMCOM ---
CM Note CM Note Notes: Followed-up with Danitza with [facility] today d/t patient's 'Self-Pay' status. Patient is over income for Medicaid and has been referred to FC. Bosch to look further into patient's case and f/u with CM on Wednesday. Continue to anticipate patient will d/c home independently. Plan: Likely Independent Date Signed: 05/30/2018 07:36 PM Electronically Signed By:Susan Montague RN
[2018-05-31] MEDS: PROMETHAZINE HCL 25 MG/ML INJ IVP PRN ×2 (01:16→06:00)
[2018-05-31] MEDS: HYDROmorphone HCL 0.5 MG/0.5 ML SYR IVP PRN ×4 (01:17→18:28)
[2018-05-31] MEDS: hydrALAZINE 25 MG TAB PO SCH ×4 (06:00→20:41)
[2018-05-31] MEDS: SERTRALINE HCL 50 MG TAB PO SCH (08:52)
[2018-05-31] MEDS: THIAMINE HCL 100 MG TAB PO SCH (08:53)
[2018-05-31] MEDS: FAMOTIDINE 20 MG/NACL 50 ML IV SCH (08:53)
--- NOTE | 2018-05-31 11:26 | SOAPPROG ---
SOAP Progress Note Assessment/Plan: Assessment: Epigastric pain improved. Tolerating some liquids. Lipase normal, LFT's normal. Imaging unremarkable. No pseudocyst. Plan: 1. Continue on high does PPI. Can switch to PO Pantoprazole 40 mg BID when taking PO 2. Trial of pancreatic enzymes with meals when diet advanced 3. Continue supportive care, advance diet as tolerated to low fat diet 4. Abstain form ETOH 5. Can follow up as outpatient with Dr. Og. Consider EUS as out patient 05/31/18 11:26 Subjective: CC: abdominal pain and pancreatitis. Doing somewhat better today. Pain it tolerable. Drinking some liquids. Objective: Vital Signs Temp Pulse Resp BP Pulse Ox 36.9 C 67 16 144/95 H 95 05/31/18 08:00 05/31/18 08:00 05/31/18 08:00 05/31/18 08:52 05/31/18 08:00 Laboratory Results 05/30/18 03:34 05/30/18 03:34 05/30/18 05/31/18 06/01/18 05:59 05:59 05:59 Intake Total 1860 3800 Output Total 0 3 Balance 1860 3800 -3 Generic Name Dose Route Start Last Admin Trade Name Freq PRN Reason Stop Dose Admin Amlodipine Besylate 10 mg 05/24/18 15:15 05/31/18 08:52 Norvasc PO 11/20/18 15:14 10 mg DAILY JANICE Administration Hydralazine HCl 25 mg 05/27/18 16:00 05/31/18 06:00 Apresoline PO 11/23/18 15:59 25 mg QID JANICE Administration Hydromorphone HCl 0.2 - 0.8 mg 05/27/18 19:56 05/31/18 05:59 Dilaudid IVP 06/06/18 14:14 0.5 mg Q4HRS PRN Administration Pain, Severe Unable to Take PO Famotidine/Sodium Chloride 50 mls @ 200 mls/hr 05/25/18 10:30 05/31/18 08:53 Pepcid 20 Mg (Premix) IV 11/21/18 10:29 50 mls Q12 JANICE Administration Sodium Chloride 1,000 mls @ 125 mls/hr 05/29/18 17:15 05/30/18 04:42 Ns IV 11/25/18 17:14 1,000 mls CONT JANICE Administration Metoprolol Succinate 50 mg 05/25/18 09:00 05/25/18 10:17 Toprol Xl PO 11/21/18 08:59 Not Given DAILY JANICE Ondansetron HCl 4 mg 05/24/18 15:11 05/30/18 00:21 Zofran IVP 11/20/18 15:10 4 mg Q4 PRN Administration Nausea/Vomiting, Can't Take PO Pantoprazole Sodium 40 mg 05/25/18 09:00 05/25/18 10:17 Protonix PO 11/21/18 08:59 Not Given DAILY JANICE Promethazine HCl 6.25 mg 05/25/18 09:59 05/31/18 06:00 Phenergan IVP 11/21/18 09:58 6.25 mg Q4 PRN Administration Nausea/Vomiting, Can't Take PO Sertraline HCl 50 mg 05/27/18 11:00 05/31/18 08:52 Zoloft PO 11/23/18 10:59 50 mg DAILY JANICE Administration Thiamine HCl 100 mg 05/27/18 09:00 05/31/18 08:53 Vitamin B-1 PO 11/23/18 08:59 100 mg DAILY JANICE Administration Discontinued Medications Generic Name Dose Route Start Last Admin Trade Name Freq PRN Reason Stop Dose Admin Acetaminophen 500 mg 05/30/18 15:01 Tylenol PO 05/30/18 16:01 Q6HRS PRN PACU, Pain Mild Dexamethasone 4 mg 05/30/18 15:01 Decadron Injection IVP 05/30/18 16:01 ONCE PRN PACU, Nausea/Vomiting Enalaprilat 1.25 mg 05/25/18 15:01 05/26/18 23:45 Vasotec Iv IVP 11/21/18 15:00 1.25 mg Q6HRS PRN Administration SBP Greater Than 160 Famotidine 20 mg 05/24/18 21:00 05/25/18 10:50 Pepcid PO 11/20/18 20:59 Not Given BID JANICE Fentanyl 25 - 100 mcg 05/30/18 15:01 05/30/18 15:47 Sublimaze IVP 05/30/18 16:01 50 mcg Q5M PRN Administration PACU, IMMEDIATE Pain control Fentanyl Confirm 05/30/18 15:37 Sublimaze Administered 05/30/18 15:38 Dose 100 mcg .ROUTE .STK-MED ONE Flumazenil 0.2 - 0.5 mg 05/24/18 15:11 Romazicon IVP 11/20/18 15:10 PRN PRN Resp Rate Below 10 Hydralazine HCl 10 mg 05/25/18 09:57 05/26/18 18:51 Apresoline IVP 11/21/18 09:56 10 mg Q6 PRN Administration systolic > 160 or diast > 95 Hydralazine HCl 10 mg 05/27/18 00:16 05/28/18 01:54 Apresoline IVP 11/21/18 09:56 10 mg Q4 PRN Administration systolic > 160 or diast > 95 Hydromorphone HCl 0.5 mg 05/24/18 10:50 05/24/18 10:54 Dilaudid IVP 05/24/18 10:51 0.5 mg EDNOW ONE Administration Hydromorphone HCl 0.5 mg 05/24/18 11:37 05/24/18 11:40 Dilaudid IVP 05/24/18 11:38 0.5 mg EDNOW ONE Administration Hydromorphone HCl 0.5 mg 05/24/18 12:46 05/24/18 12:53 Dilaudid IVP 05/24/18 12:47 0.5 mg EDNOW ONE Administration Hydromorphone HCl 0.25 - 0.5 mg 05/24/18 15:11 05/24/18 14:20 Dilaudid IVP 06/03/18 15:10 0.5 mg Q4 PRN Administration Pain, Severe Unable to Take PO Hydromorphone HCl 1 mg 05/24/18 17:45 05/25/18 08:25 Dilaudid IVP 06/03/18 17:44 1 mg Q4 PRN Administration Pain, Severe Unable to Take PO Hydromorphone HCl 0.5 - 1 mg 05/25/18 09:58 05/25/18 13:47 Dilaudid IVP 06/04/18 09:57 1 mg Q2HRS PRN Administration Pain, Severe Unable to Take PO Hydromorphone HCl 0.5 - 1 mg 05/25/18 15:00 09/14/18 09:58 Dilaudid IVP 06/04/18 09:57 0.5 mg Q2HRS PRN Administration Pain, Severe Unable to Take PO Hydromorphone HCl 1 mg 05/27/18 00:48 05/27/18 01:58 Dilaudid IVP 05/27/18 00:49 Not Given ONCE ONE Hydromorphone HCl 0.2 - 0.4 mg 05/27/18 14:15 Dilaudid IVP 06/06/18 14:14 Q4HRS PRN Pain, Severe Unable to Take PO Hydromorphone HCl 0.2 - 0.4 mg 05/27/18 14:30 05/27/18 15:27 Dilaudid IVP 06/06/18 14:14 0.4 mg Q4HRS PRN Administration Pain, Severe Unable to Take PO Sodium Chloride 1,000 mls @ 0 mls/hr 05/24/18 10:50 05/24/18 10:54 Ns IV 05/24/18 10:51 1,000 mls EDNOW ONE Administration Protocol Wide Open Sodium Chloride 1,000 mls @ 0 mls/hr 05/24/18 09:30 05/24/18 10:57 Ns IV 05/24/18 09:31 1,000 mls ONCE ONE Administration Wide Open Thiamine HCl 500 mg/ Sodium 105 mls @ 210 mls/hr 05/24/18 15:30 05/26/18 12: 33 Chloride IV 05/26/18 09:29 Not Given DAILY JANICE Sodium Chloride 1,000 mls @ 175 mls/hr 05/24/18 15:30 05/24/18 22:48 Ns IV 05/25/18 03:29 1,000 mls CONT JANICE Administration Sodium Chloride 1,000 mls @ 100 mls/hr 05/25/18 10:00 05/26/18 21:50 Ns IV 11/21/18 09:59 1,000 mls CONT JANICE Administration Lactated Ringer's 1,000 mls @ 0 mls/hr 05/30/18 13:46 05/30/18 14:12 Lr IV 05/30/18 13:47 1,000 mls ONCE ONE Administration Per Protocol Lactated Ringer's 500 mls @ 0 mls/hr 05/30/18 15:01 Lr IV 05/30/18 16:01 PRN PRN PACU, Nausea/Vomiting Post-Op Wide Open Iopamidol Confirm 05/25/18 16:15 Isovue-300 Administered 05/25/18 16:16 Dose 100 ml .ROUTE .STK-MED ONE Lidocaine HCl Confirm 05/30/18 15:04 Lidocaine Hcl 2% Administered 05/30/18 15:05 Dose 2 ml .ROUTE .STK-MED ONE Lorazepam 0 mg 05/24/18 15:11 05/27/18 07:50 Ativan Injection IVP 11/20/18 15:10 2 mg Q1H PRN Administration Alcohol Withdrawal w/IV access Protocol Metoprolol Tartrate 5 mg 05/25/18 16:15 05/26/18 22:00 Lopressor Injection IVP 11/21/18 16:14 5 mg Q6H JANICE Administration Metoprolol Tartrate 5 mg 05/27/18 00:30 05/27/18 11:32 Lopressor Injection IVP 11/23/18 00:29 Not Given Q2H JANICE Midazolam HCl 2 mg 05/30/18 14:59 05/30/18 15:43 Versed IVP 05/30/18 15:00 Not Given ONCALL ONE Midazolam HCl Confirm 05/30/18 15:04 Versed Administered 05/30/18 15:05 Dose 2 mg .ROUTE .STK-MED ONE Naloxone HCl 0.1 mg 05/30/18 15:01 Narcan IVP 05/30/18 16:01 Q2M PRN PACU Resp Rate <10/min Ondansetron HCl 4 mg 05/24/18 10:50 05/24/18 10:54 Zofran IVP 05/24/18 10:51 4 mg EDNOW ONE Administration Ondansetron HCl 4 mg 05/24/18 11:37 05/24/18 11:41 Zofran IVP 05/24/18 11:38 4 mg EDNOW ONE Administration Ondansetron HCl 2 - 4 mg 05/30/18 15:01 Zofran IVP 05/30/18 16:01 Q10M PRN PACU, Nausea/Vomiting Promethazine HCl 12.5 mg 05/24/18 15:11 05/25/18 04:43 Phenergan IVP 11/20/18 15:10 12.5 mg Q6 PRN Administration Nausea/Vomiting, Can't Take PO Promethazine HCl 6.25 - 12.5 mg 05/30/18 15:01 Phenergan IVP 05/30/18 16:01 Q5M PRN PACUNausea/Vomiting, Unable PO Propofol Confirm 05/30/18 15:04 Diprivan Administered 05/30/18 15:05 Dose 200 mg .ROUTE .STK-MED ONE Propofol Confirm 05/30/18 15:13 Diprivan Administered 05/30/18 15:14 Dose 200 mg .ROUTE .STK-MED ONE Physical Exam - Physical Exam General Appearance: alert, no apparent distress Respiratory: lungs clear Cardiac/Chest: regular rate, rhythm Abdomen: non-tender, soft Skin: normal color, warm/dry Neuro/Psych: no motor/sensory deficits, alert, normal mood/affect, oriented x 3 ICD10 Worksheet Patient Problems: Problems Problem Status Onset Acute alcoholic pancreatitis Acute
--- NOTE | 2018-05-31 11:54 | HOSPPROG ---
Hospitalist Progress Note Assessment/Plan: DIAGNOSES: # acute alcohol-induced pancreatitis * with slow resolution of his sxs, but now able to tolerate clear liquids * discussed with GI who have reviewed his MRI and do not think anything further is needed at this time--consider EUS as an OP * will begin pancreatic enzymes when able to tolerate po # gastritis: noted on EGD and likely contributing to patients inability to tolerate PO, continue high dose PPI for now # acute alcohol withdrawal with delirium * This is now resolved, off benzodiazepine * discussed with patient importance of alcohol abstinence and he understands, will look at resources prior to dc # hypertension and tachycardia -due to withdrawal as well as chronic likely poorly controlled hypertension * Tachycardia now resolved, hypertension improving and continued on hydralazine and amlodipine # acute metabolic acidosis resolved # mild alcohol induced hepatitis is now resolved # alcoholism with thiamine deficiency receiving replacement # IP status--still unable to tolerate adequate PO and will need to remain in house until able to take nutrition Subjective: no significant overnight events, patient notes he has been able to tolerate some soda without significant increase in pain Objective: Vital Signs Temp Pulse Resp BP Pulse Ox 36.9 C 67 16 144/95 H 95 05/31/18 08:00 05/31/18 08:00 05/31/18 08:00 05/31/18 08:52 05/31/18 08:00 Laboratory Results 05/30/18 03:34 05/30/18 03:34 05/30/18 05/31/18 06/01/18 05:59 05:59 05:59 Intake Total 1860 3800 Output Total 0 3 Balance 1860 3800 -3 awake alert nad anciteric op clear rrr no mrg cta b soft dec bs no rebound or guarding no cce warm dry well perfused oriented appropriate ICD10 Worksheet Patient Problems: Problems Problem Status Onset Acute alcoholic pancreatitis Acute
[2018-05-31] MEDS: NS 1,000 ML IV SCH ×2 (15:04→23:10)
--- NOTE | 2018-05-31 17:11 | ASMTCMCOM ---
CM Note CM Note Notes: Spoke with pt in the room. Provided pt with drug and alcohol recovery resources. Pt states he has plans to take an addictions class 2x/week and meet with an addictions counselor in [place] 1x per week and attend AA meetings. Pt seems resolved to recover and had been attending meetings before this relapse. Pt anticipated to d/c independently. No further CM needs noted at this time. D/C Plan: home independently Date Signed: 05/31/2018 05:11 PM Electronically Signed By:Heide Linares
[2018-05-31] MEDS: PANTOPRAZOLE SODIUM 40 MG TAB PO SCH (20:41)
[2018-05-31] MEDS ORDERED: PANTOPRAZOLE SODIUM 40 MG TAB PO SCH (21:00)
[2018-06-01] MEDS: HYDROmorphone HCL 0.5 MG/0.5 ML SYR IVP PRN (00:46)
[2018-06-01] MEDS: hydrALAZINE 25 MG TAB PO SCH ×2 (06:23→10:51)
[2018-06-01] MEDS: NS 1,000 ML IV SCH (06:23)
[2018-06-01] MEDS ORDERED: oxyCODONE IR 5 MG TAB PO PRN (10:20)
[2018-06-01] MEDS: SERTRALINE HCL 50 MG TAB PO SCH (10:49)
[2018-06-01] MEDS: PANTOPRAZOLE SODIUM 40 MG TAB PO SCH (10:49)
[2018-06-01] MEDS: THIAMINE HCL 100 MG TAB PO SCH (10:49)
[2018-06-01 11:46] VITALS: BP 170/106
[2018-06-01] MEDS ORDERED: LISINOPRIL 10 MG TAB PO SCH (12:30)
--- NOTE | 2018-06-01 12:32 | SOAPPROG ---
SOFRANDY Progress Note Assessment/Plan: Assessment: Pancreatitis Clinically improved. Tolerating PO Plan: 1. Pantoprazole 40 mg PO BID x 2 weeks then 40 mg po daily 2. Low fat diet 3. Can folllow up with us as outpatient. If continued abdominal pain will refer for EUS. 4. Will sign off, please call with further questions. 06/01/18 12:28 Subjective: CC: Abdominal pain and pancreatitis. Objective: Vital Signs Temp Pulse Resp BP Pulse Ox 36.8 C 70 15 170/106 H 98 06/01/18 09:25 06/01/18 11:43 06/01/18 11:43 06/01/18 11:43 06/01/18 11:43 Laboratory Results 05/30/18 03:34 05/30/18 03:34 05/31/18 06/01/18 06/02/18 05:59 05:59 05:59 Intake Total 3800 7129 Output Total 0 3 Balance 3800 7126 Generic Name Dose Route Start Last Admin Trade Name Freq PRN Reason Stop Dose Admin Amlodipine Besylate 10 mg 05/24/18 15:15 06/01/18 10:48 Norvasc PO 11/20/18 15:14 10 mg DAILY JANICE Administration Hydralazine HCl 25 mg 05/27/18 16:00 06/01/18 10:51 Apresoline PO 11/23/18 15:59 25 mg QID JANICE Administration Hydromorphone HCl 0.2 - 0.8 mg 05/27/18 19:56 06/01/18 00:46 Dilaudid IVP 06/06/18 14:14 0.8 mg Q4HRS PRN Administration Pain, Severe Unable to Take PO Sodium Chloride 1,000 mls @ 125 mls/hr 05/29/18 17:15 06/01/18 06:23 Ns IV 11/25/18 17:14 1,000 mls CONT JANICE Administration Lisinopril 10 mg 06/01/18 12:30 Zestril PO 11/28/18 12:29 DAILY JANICE Metoprolol Succinate 50 mg 05/25/18 09:00 05/25/18 10:17 Toprol Xl PO 11/21/18 08:59 Not Given DAILY JANICE Ondansetron HCl 4 mg 05/24/18 15:11 09/17/18 00:21 Zofran IVP 11/20/18 15:10 4 mg Q4 PRN Administration Nausea/Vomiting, Can't Take PO Oxycodone HCl 5 mg 06/01/18 10:20 06/01/18 10:54 Oxycodone Ir PO 06/11/18 10:19 5 mg Q4HRS PRN Administration Pain, Severe Able to Take PO Pantoprazole Sodium 40 mg 05/31/18 21:00 06/01/18 10:49 Protonix PO 11/27/18 20:59 40 mg BID JANICE Administration Promethazine HCl 6.25 mg 05/25/18 09:59 05/31/18 06:00 Phenergan IVP 11/21/18 09:58 6.25 mg Q4 PRN Administration Nausea/Vomiting, Can't Take PO Sertraline HCl 50 mg 05/27/18 11:00 06/01/18 10:49 Zoloft PO 11/23/18 10:59 50 mg DAILY JANICE Administration Thiamine HCl 100 mg 05/27/18 09:00 06/01/18 10:49 Vitamin B-1 PO 11/23/18 08:59 100 mg DAILY JANICE Administration Discontinued Medications Generic Name Dose Route Start Last Admin Trade Name Freq PRN Reason Stop Dose Admin Acetaminophen 500 mg 05/30/18 15:01 Tylenol PO 05/30/18 16:01 Q6HRS PRN PACU, Pain Mild Dexamethasone 4 mg 05/30/18 15:01 Decadron Injection IVP 05/30/18 16:01 ONCE PRN PACU, Nausea/Vomiting Enalaprilat 1.25 mg 05/25/18 15:01 05/26/18 23:45 Vasotec Iv IVP 11/21/18 15:00 1.25 mg Q6HRS PRN Administration SBP Greater Than 160 Famotidine 20 mg 05/24/18 21:00 05/25/18 10:50 Pepcid PO 11/20/18 20:59 Not Given BID JANICE Fentanyl 25 - 100 mcg 05/30/18 15:01 05/30/18 15:47 Sublimaze IVP 05/30/18 16:01 50 mcg Q5M PRN Administration PACU, IMMEDIATE Pain control Fentanyl Confirm 05/30/18 15:37 Sublimaze Administered 05/30/18 15:38 Dose 100 mcg .ROUTE .STK-MED ONE Flumazenil 0.2 - 0.5 mg 05/24/18 15:11 Romazicon IVP 11/20/18 15:10 PRN PRN Resp Rate Below 10 Hydralazine HCl 10 mg 05/25/18 09:57 05/26/18 18:51 Apresoline IVP 11/21/18 09:56 10 mg Q6 PRN Administration systolic > 160 or diast > 95 Hydralazine HCl 10 mg 05/27/18 00:16 05/28/18 01:54 Apresoline IVP 11/21/18 09:56 10 mg Q4 PRN Administration systolic > 160 or diast > 95 Hydromorphone HCl 0.5 mg 05/24/18 10:50 05/24/18 10:54 Dilaudid IVP 05/24/18 10:51 0.5 mg EDNOW ONE Administration Hydromorphone HCl 0.5 mg 05/24/18 11:37 05/24/18 11:40 Dilaudid IVP 05/24/18 11:38 0.5 mg EDNOW ONE Administration Hydromorphone HCl 0.5 mg 05/24/18 12:46 05/24/18 12:53 Dilaudid IVP 05/24/18 12:47 0.5 mg EDNOW ONE Administration Hydromorphone HCl 0.25 - 0.5 mg 05/24/18 15:11 05/24/18 14:20 Dilaudid IVP 06/03/18 15:10 0.5 mg Q4 PRN Administration Pain, Severe Unable to Take PO Hydromorphone HCl 1 mg 05/24/18 17:45 05/25/18 08:25 Dilaudid IVP 06/03/18 17:44 1 mg Q4 PRN Administration Pain, Severe Unable to Take PO Hydromorphone HCl 0.5 - 1 mg 05/25/18 09:58 05/25/18 13:47 Dilaudid IVP 06/04/18 09:57 1 mg Q2HRS PRN Administration Pain, Severe Unable to Take PO Hydromorphone HCl 0.5 - 1 mg 05/25/18 15:00 05/27/18 09:58 Dilaudid IVP 06/04/18 09:57 0.5 mg Q2HRS PRN Administration Pain, Severe Unable to Take PO Hydromorphone HCl 1 mg 05/27/18 00:48 05/27/18 01:58 Dilaudid IVP 05/27/18 00:49 Not Given ONCE ONE Hydromorphone HCl 0.2 - 0.4 mg 05/27/18 14:15 Dilaudid IVP 06/06/18 14:14 Q4HRS PRN Pain, Severe Unable to Take PO Hydromorphone HCl 0.2 - 0.4 mg 05/27/18 14:30 05/27/18 15:27 Dilaudid IVP 06/06/18 14:14 0.4 mg Q4HRS PRN Administration Pain, Severe Unable to Take PO Sodium Chloride 1,000 mls @ 0 mls/hr 05/24/18 10:50 05/24/18 10:54 Ns IV 05/24/18 10:51 1,000 mls EDNOW ONE Administration Protocol Wide Open Sodium Chloride 1,000 mls @ 0 mls/hr 05/24/18 09:30 05/24/18 10:57 Ns IV 05/24/18 09:31 1,000 mls ONCE ONE Administration Wide Open Thiamine HCl 500 mg/ Sodium 105 mls @ 210 mls/hr 05/24/18 15:30 05/26/18 12: 33 Chloride IV 05/26/18 09:29 Not Given DAILY JANICE Sodium Chloride 1,000 mls @ 175 mls/hr 05/24/18 15:30 05/24/18 22:48 Ns IV 05/25/18 03:29 1,000 mls CONT JANICE Administration Sodium Chloride 1,000 mls @ 100 mls/hr 05/25/18 10:00 05/26/18 21:50 Ns IV 11/21/18 09:59 1,000 mls CONT JANICE Administration Famotidine/Sodium Chloride 50 mls @ 200 mls/hr 05/25/18 10:30 05/31/18 08:53 Pepcid 20 Mg (Premix) IV 11/21/18 10:29 50 mls Q12 JANICE Administration Lactated Ringer's 1,000 mls @ 0 mls/hr 05/30/18 13:46 05/30/18 14:12 Lr IV 05/30/18 13:47 1,000 mls ONCE ONE Administration Per Protocol Lactated Ringer's 500 mls @ 0 mls/hr 05/30/18 15:01 Lr IV 05/30/18 16:01 PRN PRN PACU, Nausea/Vomiting Post-Op Wide Open Iopamidol Confirm 05/25/18 16:15 Isovue-300 Administered 05/25/18 16:16 Dose 100 ml .ROUTE .STK-MED ONE Lidocaine HCl Confirm 05/30/18 15:04 Lidocaine Hcl 2% Administered 05/30/18 15:05 Dose 2 ml .ROUTE .STK-MED ONE Lorazepam 0 mg 05/24/18 15:11 05/27/18 07:50 Ativan Injection IVP 11/20/18 15:10 2 mg Q1H PRN Administration Alcohol Withdrawal w/IV access Protocol Metoprolol Tartrate 5 mg 05/25/18 16:15 05/26/18 22:00 Lopressor Injection IVP 11/21/18 16:14 5 mg Q6H JANICE Administration Metoprolol Tartrate 5 mg 05/27/18 00:30 05/27/18 11:32 Lopressor Injection IVP 11/23/18 00:29 Not Given Q2H JANICE Midazolam HCl 2 mg 05/30/18 14:59 05/30/18 15:43 Versed IVP 05/30/18 15:00 Not Given ONCALL ONE Midazolam HCl Confirm 05/30/18 15:04 Versed Administered 05/30/18 15:05 Dose 2 mg .ROUTE .STK-MED ONE Naloxone HCl 0.1 mg 05/30/18 15:01 Narcan IVP 05/30/18 16:01 Q2M PRN PACU Resp Rate <10/min Ondansetron HCl 4 mg 05/24/18 10:50 05/24/18 10:54 Zofran IVP 05/24/18 10:51 4 mg EDNOW ONE Administration Ondansetron HCl 4 mg 05/24/18 11:37 05/24/18 11:41 Zofran IVP 05/24/18 11:38 4 mg EDNOW ONE Administration Ondansetron HCl 2 - 4 mg 05/30/18 15:01 Zofran IVP 05/30/18 16:01 Q10M PRN PACU, Nausea/Vomiting Pantoprazole Sodium 40 mg 05/25/18 09:00 05/25/18 10:17 Protonix PO 11/21/18 08:59 Not Given DAILY JANICE Promethazine HCl 12.5 mg 05/24/18 15:11 05/25/18 04:43 Phenergan IVP 11/20/18 15:10 12.5 mg Q6 PRN Administration Nausea/Vomiting, Can't Take PO Promethazine HCl 6.25 - 12.5 mg 05/30/18 15:01 Phenergan IVP 05/30/18 16:01 Q5M PRN PACUNausea/Vomiting, Unable PO Propofol Confirm 05/30/18 15:04 Diprivan Administered 05/30/18 15:05 Dose 200 mg .ROUTE .STK-MED ONE Propofol Confirm 05/30/18 15:13 Diprivan Administered 05/30/18 15:14 Dose 200 mg .ROUTE .STK-MED ONE Physical Exam - Physical Exam General Appearance: alert, no apparent distress Respiratory: lungs clear Cardiac/Chest: regular rate, rhythm Abdomen: normal bowel sounds, non-tender, soft Skin: normal color, warm/dry Neuro/Psych: no motor/sensory deficits, alert, normal mood/affect, oriented x 3 ICD10 Worksheet Patient Problems: Problems Problem Status Onset Acute alcoholic pancreatitis Acute
== END 2018-06-01 14:30 | disposition home or self-care (01) | DRG 439 ==
LOC: CED 09:27 → CEDHOLD 12:12 → F2W 14:13 → OBSVTOIN 15:14
PROVIDERS: ADMIT Family Medicine; ATTEND Family Medicine
PROC: 0DB68ZX Excision of Stomach, Via Natural or Artificial Opening Endoscopic, Diagnostic (ICD-10-PCS; principal; 2018-05-30 14:30)
DX: K85.20 Alcohol induced acute pancreatitis without necrosis or infection (principal); F10.231 Alcohol dependence with withdrawal delirium; I10 Essential (primary) hypertension; K29.70 Gastritis, unspecified, without bleeding; K70.10 Alcoholic hepatitis without ascites; E87.2 Acidosis; E51.9 Thiamine deficiency, unspecified; E66.9 Obesity, unspecified; Z68.33 Body mass index [BMI] 33.0-33.9, adult
CPT/HCPCS: 80053-PO; 96374; J0360; J1170; J2060; J2250; J2405; J2550; J2704; J3010; J3411; Q9967

== ENCOUNTER 2018-10-13 10:52 | Emergency (ER) | payer MEDICAID, OTHER ==
[2018-10-13] MEDS ORDERED: NS 1,000 ML IV ONE ×2 (11:19)
[2018-10-13] MEDS ORDERED: KETOROLAC 15 MG/1 ML SDV IVP ONE (11:19)
[2018-10-13] MEDS ORDERED: FAMOTIDINE 20 MG in NS 100 ML IV ONE (11:19)
[2018-10-13] MEDS ORDERED: ONDANSETRON 4 MG/2 ML VIAL IVP ONE (11:19)
--- NOTE | 2018-10-13 12:14 | EDPHY ---
H & P Stated Complaint: n/v/d/ since yesterday generalized abd pain Time Seen by Provider: 10/13/18 10:54 HPI/ROS: Chief Complaint: Abdominal pain, nausea, vomiting HPI: 33-year-old male presenting with 2 days of nausea vomiting diarrhea and abdominal pain. Patient has a history of alcoholic pancreatitis. States he did binge drink several nights ago. No fevers or chills. No cough. No chest pain or shortness of breath. He does have general malaise and fatigue. Pain is in his upper abdomen. About a 8/10. He says the nausea is worse. No blood or coffee-grounds in his vomit. No dark tarry stools or blood in his stool. There are no aggravating or alleviating factors. Does state that everyone in his family has been sick with upper respiratory symptoms recently. ROS: 10 systems were reviewed and were negative except those elements noted in the HPI. PMH: Alcohol pancreatitis Social History: No smoking, history of heavy alcohol, no recreational drug use Family History: non-contributory Physical Exam: Gen: Awake, Alert, No Distress HEENT: Nose: no rhinorrhea Eyes: PERRLA, EOMI Mouth: Moist mucosa Neck: Supple, no JVD Chest: nontender, lungs clear to auscultation Heart: S1, S2 normal, no murmur Abd: Soft, moderate epigastric tenderness, no guarding Back: no CVA tenderness, no midline tenderness Ext: no edema, non-tender Skin: no rash Neuro: CN II-XII intact, Sensation grossly intact, Strength 5/5 in bilateral upper and lower extremities - Personal History Current Tetanus Diphtheria and Acellular Pertussis (TDAP): Yes - Medical/Surgical History Hx Asthma: No Hx Chronic Respiratory Disease: No Hx Diabetes: No Hx Cardiac Disease: Yes Hx Renal Disease: No Hx Cirrhosis: No Hx Alcoholism: Yes Hx HIV/AIDS: No Hx Splenectomy or Spleen Trauma: No Other PMH: appy/hernia/tonsillectomy/l knee surg/nasal fx REPAIR. Med hx-htn, gerd. ETOH abuse. Pancreatitis, anxiety, depression - Social History Smoking Status: Current some day smoker Constitutional: Initial Vital Signs Heart Rate 110 H 10/13/18 10:58 Respiratory Rate 18 10/13/18 10:58 Blood Pressure 165/120 H 10/13/18 10:58 O2 Sat (%) 97 10/13/18 10:58 O2 Delivery Mode Room Air Allergies/Adverse Reactions: haloperidol [From Haldol] Allergy (Verified 10/13/18 11:06) Other-Enter Comments lisinopril Allergy (Verified 10/13/18 11:08) Sulfa (Sulfonamide Antibiotics) Allergy (Verified 10/13/18 11:06) Dyspnea tramadol Allergy (Verified 10/13/18 11:06) Other-Enter Comments Home Medications: Medication Instructions Recorded Metoprolol Succinate Xr [Toprol Xl 50 mg PO DAILY 05/24/18 50 mg (*)] amLODIPine BESYLATE [Norvasc 10 mg 10 mg PO DAILY 05/24/18 (*)] Omeprazole 10/13/18 Ondansetron Odt [Zofran Odt 4 mg 4 mg PO Q4 PRN #10 tab 10/13/18 (*)] Medical Decision Making ED Course/Re-evaluation: 33-year-old male presenting with abdominal pain, nausea vomiting. Has a history of pancreatitis. Recent binge drinking. Lipase is elevated in the 700 tear. Is not have leukocytosis. Some elevation in his bilirubin consistent with prior liver disease. Mild elevations creatinine consistent with dehydration. He has received 2 L of IV fluids here. Pepcid, Toradol, ondansetron. He is feeling improved. Abdomen is soft and benign. Certainly nonsurgical. He is tolerating p.o. Fluids. Will discharge with follow-up as an outpatient, return for any concerns. - Data Points Laboratory Results: 10/13/18 10/13/18 11:35 11:25 POC Sodium 137 mEq/L mEq/L (135-145) POC Potassium 3.4 mEq/L mEq/L (3.3-5.0) POC Chloride 102.0 mEq/L mEq/L (97-110) POC Total CO2 21 mEq/L L mEq/L (22-31) POC BUN 14 mg/dL mg/dL (7-23) POC Creatinine 1.4 mg/dL H mg/dL (0.7-1.3) POC Glucose 134 mg/dL H mg/dL (70-100) POC Calcium 9.7 mg/dL mg/dL (8.5-10.4) POC Total Bilirubin 2.5 mg/dL H mg/dL (0.1-1.4) POC AST 37 IU/L IU/L (17-59) POC ALT 30 IU/L IU/L (21-72) POC Alk Phosphatase 83 IU/L IU/L (38-126) POC Total Protein 8.5 g/dL H g/dL (6.3-8.2) POC Albumin 4.2 g/dL g/dL (3.5-5.0) Lipase 763 IU/L H IU/L (23-300) Medications Given: Discontinued Medications Sodium Chloride (Ns) 1,000 mls @ 0 mls/hr IV ONCE ONE; Wide Open PRN Reason: Protocol Stop: 10/13/18 11:20 Last Admin: 10/13/18 11:30 Dose: 1,000 mls Sodium Chloride (Ns) 1,000 mls @ 0 mls/hr IV ONCE ONE; Wide Open PRN Reason: Protocol Stop: 10/13/18 11:20 Last Admin: 10/13/18 12:30 Dose: 1,000 mls Famotidine 20 mg/ Sodium (Chloride) 102 mls @ 408 mls/hr IV EDNOW ONE Stop: 10/13/18 11:33 Last Admin: 10/13/18 12:10 Dose: 102 mls Ketorolac Tromethamine (Toradol) 15 mg IVP EDNOW ONE Stop: 10/13/18 11:20 Last Admin: 10/13/18 11:34 Dose: 15 mg Ondansetron HCl (Zofran) 4 mg IVP EDNOW ONE Stop: 10/13/18 11:20 Last Admin: 10/13/18 11:34 Dose: 4 mg Promethazine HCl (Phenergan) 12.5 mg IVP EDNOW ONE Stop: 10/13/18 13:53 Last Admin: 10/13/18 13:56 Dose: 12.5 mg Point of Care Test Results: CBC CBC Collection Date 10/13/18 CBC Collection Time 11:25 WBC 7.8 RBC 5.02 HGB 16.6 HCT 47.2 PLT 161 Neut # 6.0 Neut 77.5 LYMPH # 1.4 LYMPH 17.7 Other WBC # 0.4 Other WBC 4.8 MCV 94.0 Chemistry 10/13/18 11:35 POC Sodium 137 mEq/L mEq/L (135-145) POC Potassium 3.4 mEq/L mEq/L (3.3-5.0) POC Chloride 102.0 mEq/L mEq/L (97-110) POC Total CO2 21 mEq/L L mEq/L (22-31) POC BUN 14 mg/dL mg/dL (7-23) POC Creatinine 1.4 mg/dL H mg/dL (0.7-1.3) POC Glucose 134 mg/dL H mg/dL (70-100) POC Calcium 9.7 mg/dL mg/dL (8.5-10.4) POC Total Bilirubin 2.5 mg/dL H mg/dL (0.1-1.4) POC AST 37 IU/L IU/L (17-59) POC ALT 30 IU/L IU/L (21-72) POC Alk Phosphatase 83 IU/L IU/L (38-126) POC Total Protein 8.5 g/dL H g/dL (6.3-8.2) POC Albumin 4.2 g/dL g/dL (3.5-5.0) Departure - Departure Disposition: Home, Routine, Self-Care Clinical Impression: Acute alcoholic pancreatitis Condition: Good Instructions: Pancreatitis (ED) Additional Instructions: May take Zofran as needed for nausea vomiting. Follow up with primary care physician in 3-4 days for further evaluation. Return to the emergency department for worsening abdominal pain, uncontrolled nausea vomiting, fevers, or any other concerns. Referrals: Khushboo Cohen MD [Medical Doctor] - As per Instructions Prescriptions: Ondansetron Odt [Zofran Odt 4 mg (*)] 4 mg PO Q4 PRN #10 tab PRN Reason: nausea
[2018-10-13] MEDS ORDERED: PROMETHAZINE HCL 25 MG/ML INJ IVP ONE (13:52)
[2018-10-13 14:41] VITALS: BP 155/108
== END 2018-10-13 14:38 | disposition home or self-care (01) ==
LOC: CED 10:52
DX: K85.20 Alcohol induced acute pancreatitis without necrosis or infection (principal)
CPT/HCPCS: 80053-ER; 96361-ER; 96365; 96375-ER; 99284-ER; J1885; J2405; J2550

== ENCOUNTER 2018-10-13 19:45 | Emergency (ER) | payer MEDICAID, OTHER ==
[2018-10-13] MEDS ORDERED: HYDROmorphONE/DILAUDID 2 MG/ML INJ IVP ONE (19:56)
[2018-10-13] MEDS ORDERED: ONDANSETRON 4 MG/2 ML VIAL IVP ONE (19:56)
[2018-10-13] MEDS ORDERED: NS 1,000 ML IV ONE ×2 (19:56→20:53)
[2018-10-13] MEDS ORDERED: FAMOTIDINE 20 MG in NS 100 ML IV ONE (19:56)
[2018-10-13] MEDS ORDERED: HYDROmorphONE/DILAUDID 1 MG/ML INJ ONE (20:51)
--- NOTE | 2018-10-13 20:53 | EDPHY ---
H & P Time Seen by Provider: 10/13/18 19:57 HPI/ROS: HPI Pain from pancreatitis. Vomiting. 33-year-old male by private vehicle with his mother. This patient has a history of alcohol abuse. He is currently enrolled in the [facility] outpatient treatment program. He was seen in our emergency department earlier this morning. His lipase at that time was 786. He was treated with Toradol and Zofran. He felt better and was discharged to home. He reports that his pain returned soon after returning home. He describes this as an epigastric burning. This was then followed by nausea and several episodes of nonbilious, nonbloody vomiting throughout the day. ROS: Constitutional: No fever, no chills. No weakness. Eyes: No discharge. No changes in vision. ENT: No sore throat. No nasal congestion or rhinorrhea. Respiratory: No cough. No shortness of breath. Cardiac: No chest pain, no palpitations. Gastrointestinal: As above, no diarrhea. Genitourinary: No hematuria. No dysuria or increased frequency with urination. Musculoskeletal: No back pain. No neck pain. No myalgias or arthralgias. Skin: No rashes. Neurological: No headache. No focal weakness or altered sensation. Past medical history: Alcohol abuse, pancreatitis, anxiety, depression, appendectomy, hernia, tonsillectomy, hypertension, GERD. Social history: Nonsmoker. His mother is present in the room. Alcohol abuse as above. Last drink was 2 days ago. Physical Exam: General Appearance: Alert, he appears uncomfortable but not in distress. This patient is responding to questions appropriately and in full sentences. This patient appears well-hydrated and well-nourished. Eyes: Pupils equal and round no pallor or injection. No lid edema, erythema or injection. Respiratory: There are no retractions, lungs are clear to auscultation with good air movement bilaterally. Cardiovascular: Regular rate and rhythm. No murmur. Gastrointestinal: Abdomen is soft with vague epigastric tenderness on palpation which is mild, no masses, bowel sounds normal. No focal tenderness at McBurney's point. No Bowman sign. Neurological: Motor sensory function is grossly intact. Cranial nerves are normal. Gait is normal. Skin: Warm and dry, no rashes. Musculoskeletal: Neck is supple and nontender. Extremities are symmetrical. All joints range without pain or impingement. Psychiatric: No agitation. No depression. Database: EKG: Imaging: Procedures: Emergency department course: Triage vital signs reviewed. He is hypertensive. Vital signs are otherwise normal. IV was placed. He was started on IV normal saline with 1-2 L to be given over the next 1-2 hours. He will initially be given 0.5 mg of IV hydromorphone, 4 mg of IV Zofran and 20 mg of IV Pepcid. 8:50 p.m., the patient was re-evaluated, he is feeling more comfortable at this time but is asking for another dose of pain medication. He will be given a 2nd 0.5 mg dose of IV hydromorphone. He has had 1 L of fluid. 9:30 p.m., patient re-evaluated, resting comfortably. Repeat abdominal exam is soft, nontender nondistended. He feels well enough to go home now with his mother who is in the room with him. I feel he is safe for discharge. Follow- up and return to emergency department precautions reviewed with him. All of his questions were answered. He was discharged from the emergency department in good condition with his mother who is driving. Differential Diagnosis: The differential diagnosis on this patient includes but is not limited to alcoholic gastritis, pancreatitis. Volvulus, cholecystitis, other surgical etiology unlikely. This represents a partial list of diagnoses considered. These considerations are based on history, physical exam, past history, reassessment and diagnostic testing. Smoking Status: Current some day smoker Constitutional: Initial Vital Signs Temperature (C) 36.6 C 10/13/18 19:52 Heart Rate 84 10/13/18 19:52 Respiratory Rate 20 10/13/18 19:52 Blood Pressure 177/144 H 10/13/18 19:52 O2 Sat (%) 97 10/13/18 19:52 O2 Delivery Mode Room Air Allergies/Adverse Reactions: haloperidol [From Haldol] Allergy (Verified 10/13/18 11:06) Other-Enter Comments lisinopril Allergy (Verified 10/13/18 11:08) Sulfa (Sulfonamide Antibiotics) Allergy (Verified 10/13/18 11:06) Dyspnea tramadol Allergy (Verified 10/13/18 11:06) Other-Enter Comments Home Medications: Medication Instructions Recorded Metoprolol Succinate Xr [Toprol Xl 50 mg PO DAILY 05/24/18 50 mg (*)] amLODIPine BESYLATE [Norvasc 10 mg 10 mg PO DAILY 05/24/18 (*)] Omeprazole 10/13/18 Ondansetron Odt [Zofran Odt 4 mg 4 mg PO Q4 PRN #10 tab 10/13/18 (*)] Medical Decision Making - Data Points Laboratory Results: 10/13/18 20:24 POC Sodium 137 mEq/L mEq/L (135-145) POC Potassium 3.3 mEq/L mEq/L (3.3-5.0) POC Chloride 102.0 mEq/L mEq/L (97-110) POC Total CO2 18 mEq/L L mEq/L (22-31) POC BUN 12 mg/dL mg/dL (7-23) POC Creatinine 1.1 mg/dL mg/dL (0.7-1.3) POC Glucose 93 mg/dL mg/dL (70-100) POC Calcium 9.0 mg/dL mg/dL (8.5-10.4) Medications Given: Discontinued Medications Hydromorphone HCl (Dilaudid) 0.5 mg IVP EDNOW ONE Stop: 10/13/18 19:57 Last Admin: 10/13/18 20:13 Dose: 0.5 mg Sodium Chloride (Ns) 1,000 mls @ 0 mls/hr IV EDNOW ONE; Wide Open PRN Reason: Protocol Stop: 10/13/18 19:57 Last Admin: 10/13/18 20:13 Dose: 1,000 mls Famotidine 20 mg/ Sodium (Chloride) 102 mls @ 408 mls/hr IV EDNOW ONE Stop: 10/13/18 20:10 Last Admin: 10/13/18 20:13 Dose: 102 mls Ondansetron HCl (Zofran) 4 mg IVP EDNOW ONE Stop: 10/13/18 19:57 Last Admin: 10/13/18 20:13 Dose: 4 mg Point of Care Test Results: Chemistry 10/13/18 20:24 POC Sodium 137 mEq/L mEq/L (135-145) POC Potassium 3.3 mEq/L mEq/L (3.3-5.0) POC Chloride 102.0 mEq/L mEq/L (97-110) POC Total CO2 18 mEq/L L mEq/L (22-31) POC BUN 12 mg/dL mg/dL (7-23) POC Creatinine 1.1 mg/dL mg/dL (0.7-1.3) POC Glucose 93 mg/dL mg/dL (70-100) POC Calcium 9.0 mg/dL mg/dL (8.5-10.4) Departure - Departure Disposition: Home, Routine, Self-Care Clinical Impression: Pancreatitis, Alcoholic gastritis Condition: Good Instructions: Pancreatitis (ED) Additional Instructions: Read and follow provided instructions. Follow-up with your primary care physician in 1-2 days for re-evaluation. Do not drink alcohol. This will exacerbate her symptoms. Take medication as prescribed for nausea. Return to the emergency department for worsening worsening abdominal pain, vomiting and inability to keep fluids down despite medications, bloody or black stool or other serious concerns. Referrals: NONE *PRIMARY CARE P,. [Primary Care Provider] - As per Instructions
[2018-10-13] MEDS ORDERED: HYDROmorphONE/DILAUDID 1 MG/ML INJ IVP ONE (21:47)
[2018-10-14 00:15] VITALS: BP 170/92
== END 2018-10-13 21:43 | disposition home or self-care (01) ==
LOC: CED 19:45
DX: K85.20 Alcohol induced acute pancreatitis without necrosis or infection (principal); K29.20 Alcoholic gastritis without bleeding; F10.10 Alcohol abuse, uncomplicated
CPT/HCPCS: 80048-ER; 96361-ER; 96374-ER; 96375-ER; 96376-ER; 99284-ER; J1170; J2405